=== PATIENT | female | born 1945 | race Caucasian/White ===

== ENCOUNTER 2018-04-25 19:48 | Inpatient (IN) | payer OTHER, MEDICARE ==
--- NOTE | 2018-04-25 20:06 | PDOC ---
History of Present Illness - General History Source: Patient, Family Exam Limitations: Dementia - History of Present Illness Initial Comments: 04/25/18 20:25 The patient is a 73 year old female with a past medical history of COPD, dementia, and alzheimers disease BIBEMS from [facility] who presents to the emergency department for evaluation of fever, and cough since this morning. As per daughter at bedside, patient has had a 2-3 week history of decline in daily activity including eating and using the bathroom. Daughter reports patient also has a 3 week history of worsening gait instability. Today, EMS reports patient had a fever with tmax of 101.4 and worsening productive cough. EMS reports nurse had given patient Tylenol at 5pm with mild alleviation to her symptoms. Patient history limited secondary to dementia. Allergies: seasonal Surgical History: B/L cataract, bladder mesh, hysterectomy PCP: Dr. Velasco <Andres Subramanian - Last Filed: 04/25/18 20:27> <Ila Mccormick - Last Filed: 04/26/18 02:25> - General Stated Complaint: SICK Time Seen by Provider: 04/25/18 20:03 Past History <Andres Subramanian - Last Filed: 04/25/18 20:27> - Past Medical History Anemia: No Asthma: Yes Cancer: No Cardiac Disorders: No CVA: No COPD: Yes CHF: No Dementia: Yes (FORGETFUL, MILD DEMENTIA) Diabetes: No GI Disorders: Yes (ACID REFLUX) Disorders: No HTN: No Hypercholesterolemia: No Liver Disease: No Psychiatric Problems: Yes (ANXIETY) Seizures: No Thyroid Disease: No - Surgical History Abdominal Surgery: No Appendectomy: No Cardiac Surgery: No Cholecystectomy: No Lung Surgery: No Neurologic Surgery: No Orthopedic Surgery: No - Immunization History Td Vaccination: Yes Immunization Up to Date: Yes - Suicide/Smoking/Psychosocial Hx Smoking Status: No Smoking History: Former smoker Have you smoked in the past 12 months: No Number of Cigarettes Smoked Daily: 0 If you are a former smoker, when did you quit?: OVER 40 YREAS AGO Hx Alcohol Use: No Drug/Substance Use Hx: No Substance Use Type: None Hx Substance Use Treatment: No <Ila Mccormick - Last Filed: 04/26/18 02:25> - Past Medical History Allergies/Adverse Reactions: Allergies Allergy/AdvReac Type Severity Reaction Status Date / Time No Known Drug Allergies Allergy Verified 04/26/18 00:47 seasonal Allergy Uncoded 04/25/18 20:32 Home Medications: Ambulatory Orders Alprazolam 0.25 mg PO BID tablet 08/25/12 Cholecalciferol (Vitamin D3) [Vitamin D3] 400 unit PO DAILY tablet 09/08/12 Magnesium Oxide [Magnesium] 500 mg PO 2 Caps daily capsule 09/08/12 Multivitamin [Daily Vitamin] 1 each PO DAILY tablet 09/08/12 Pyridoxine HCl [Vitamin B-6] 200 mg PO 2 Tabs Daily tablet 09/08/12 Alprazolam 0.25 mg PO BID 08/13/14 Pantoprazole Sodium [Protonix] 40 mg PO DAILY 08/13/14 Montelukast Na [Singulair -] 10 mg PO HS 09/25/14 Amoxicillin/Potassium Clav [Augmentin 875-125 Tablet] 1 each PO BID #10 tablet 05/31/15 Guaifenesin [Expectorant] 200 mg PO QID PRN #30 tablet 05/31/15 Respiratory Specific PMHX - Complaint Specific PMHX Angina: No Bronchitis: (possible) Pneumonia: No Pulmonary Embolus: No TB (Tuberculosis): No <Ila Mccormick - Last Filed: 04/26/18 02:25> Review of Systems - Review of Systems Able to Perform ROS?: No (unable to obtain dementia) Comments:: ROS unable to obtain secondary to dementia. <Andres Subramanian - Last Filed: 04/25/18 20:27> *Physical Exam - Physical Exam Comments: 04/25/18 20:26 wnwd 73 yo F, mildly diaphoretic head ncat neck supple oropharynx no exudates Heart RRR. No gallops, murmurs, or rubs. lungs clear to auscultation bilaterally, no wheezing or crackles abd soft,nontender ext no e/c/c, MAEx4 skin warm and dry,no rashes neuro Alert, poor historian <Andres Subramanian - Last Filed: 04/25/18 20:27> ED Treatment Course - LABORATORY CBC & Chemistry Diagram: 04/25/18 21:20 04/25/18 21:20 <Ila Mccormick - Last Filed: 04/26/18 02:25> Medical Decision Making - Medical Decision Making 04/25/18 20:08 73-year-old female brought in by ambulance from [address] [place] [address] for several weeks of decline in her activities of daily living, with difficulty feeding herself and ambulating. Over the last 24 hours she has had productive cough and fever and has difficulty walking Past medical history COPD, dementia Past surgical history hysterectomy, cataracts Pulse ox on room air is 92% Plan rectal temp, influenza swab, chest x-ray, CBC, total, comp, chemistries, CAT scan of the head 04/25/18 23:56 CAT scan of the head findings. Brain parenchyma is normal with no mass or hematoma. There is no midline shift. Grade white matter differentiation is normal. The ventricles are normal. There is no calvarial fracture. There is some mucosal thickening of the x-ray sinuses with surgical changes in the medial wall, suggesting previous sinus surgery. Impression sinusitis 04/26/18 01:19 UA shows urinary tract infection IMP UTI,fever,weakness ADMIT med/surg 04/26/18 01:43 <Ila Mccormick - Last Filed: 04/26/18 02:25> *DC/Admit/Observation/Transfer - Attestations Scribe Attestion: Documentation prepared by Andres Subramanian, acting as medical technicians for Ila Mccormick MD. <Andres Subramanian - Last Filed: 04/25/18 20:27> - Discharge Dispostion Decision to Admit order: Yes <Ila Mccormick - Last Filed: 04/26/18 02:25> Diagnosis at time of Disposition: UTI (urinary tract infection) Qualifiers: Urinary tract infection type: acute cystitis Hematuria presence: without hematuria Qualified Code(s): N30.00 - Acute cystitis without hematuria Dementia Qualifiers: Dementia type: unspecified type Dementia behavioral disturbance: without behavioral disturbance Qualified Code(s): F03.90 - Unspecified dementia without behavioral disturbance Fever Qualifiers: Fever type: due to other condition Qualified Code(s): R50.81 - Fever presenting with conditions classified elsewhere - Referrals Referrals: Steven Velasco [Primary Care Provider] - - Patient Instructions - Post Discharge Activity
[2018-04-25 21:39] LABS: BASO % 0.3 % (0-2.0); EOS % 1.1 % (0-4.5); HEMATOCRIT 39.9 % (32.4-45.2); HEMOGLOBIN 13.6 GM/dL (10.7-15.3); LYMPH % 22.8 % (8-40); MCH 28.1 pg (25.7-33.7); MCHC 34.1 g/dl (32.0-36.0); MEAN CELL VOLUME 82.5 fl (80-96); MEAN PLT VOLUME 8.3 fl (7.5-11.1); MONO % 11.3 % (3.8-10.2); NEUT % 64.5 % (42.8-82.8); PLATELET COUNT 429 K/MM3 (134-434); RBC 4.84 M/mm3 (3.60-5.2); RDW 14.2 % (11.6-15.6); WHITE BLOOD COUNT 10.3 K/mm3 (4.0-10.0)
[2018-04-25 21:51] LABS: VENOUS PC02 45.3 mmHg (38-52); VENOUS PH 7.39 (7.32-7.42)
[2018-04-25 22:06] LABS: ALBUMIN 3.4 g/dl (3.4-5.0); ALK PHOS 140 U/L (45-117); ANION GAP 7 MMOL/L (8-16); BILIRUBIN,TOTAL 0.3 mg/dL (0.2-1); BLOOD UREA NITROGEN 20 mg/dL (7-18); CALCIUM 9.7 mg/dL (8.5-10.1); CHLORIDE 104 mmol/L (98-107); CO2 27 mmol/L (21-32); CREATININE 0.4 mg/dL (0.55-1.3); GLUCOSE,RANDOM 99 mg/dL (74-106); POTASSIUM 4.3 mmol/L (3.5-5.1); SGOT/AST 29 U/L (15-37); SGPT/ALT 39 U/L (13-61); SODIUM 138 mmol/L (136-145); TOT PROT 7.2 g/dl (6.4-8.2)
[2018-04-25 22:09] LABS: INR 1.05 (0.83-1.09); PROTHROMBIN TIME (PATIENT) 12.4 SEC (9.7-13.0)
[2018-04-25 22:12] LABS: ACTIVATED PTT 30.3 SECONDS (25.2-36.5)
[2018-04-25 23:41] LABS: URINE APPEARANCE CLEAR; URINE BILIRUBIN NEGATIVE (<2.0 mg/dL); URINE COLOR YELLOW; URINE GLUCOSE (UA) NEGATIVE (NEGATIVE); URINE KETONE NEGATIVE (NEGATIVE); URINE LEUK ESTERASE 2+ (NEGATIVE); URINE NITRITE NEGATIVE (NEGATIVE); URINE PROTEIN NEGATIVE (NEGATIVE); URINE UROBILINOGEN NEGATIVE mg/dL (0.2-1.0)
[2018-04-25 23:48] LABS: EPI CELLS RARE /HPF (FEW); URINE MUCUS RARE
[2018-04-26] MEDS ORDERED: CEFTRIAXONE 1 GM in DEXTROSE 5%-WATER - 50 ML IVPB ONE (00:45)
[2018-04-26] MEDS ORDERED: CEFTRIAXONE 1 GM/50 ML BAG ONE (01:46)
--- NOTE | 2018-04-26 02:18 | PN ---
Teaching Attending Note Name of Resident: Walter Thapa ATTENDING PHYSICIAN STATEMENT I saw and evaluated the patient. I reviewed the resident's note and discussed the case with the resident. I agree with the resident's findings and plan as documented. SUBJECTIVE: Patient is a 73 year old woman with a past medical history of COPD, anxiety, dementia, and alzheimers disease who presents from [address] [place] [address] to the ER for evaluation of fever, and cough since this morning. As per daughter at bedside, patient has had a 2-3 week history of decline in daily activity including eating and using the bathroom. Daughter reports patient also has a 3 week history of worsening gait instability. EMS reports patient had a fever today with Tmax of 101.4 and worsening productive cough. EMS reports nurse had given patient Tylenol at 5pm with mild alleviation to her symptoms. Patient history limited secondary to dementia. OBJECTIVE: Alert Vital Signs Period Temp Pulse Resp BP Sys/Parmar Pulse Ox Last 24 Hr 99.8 F 87 18 129/85 93 HEENT: No Jaundice, eye redness or discharge, PERRLA, EOMI. Normocephalic, atraumatic. External ears are normal and hearing is grossly intact. No nasal discharge. Neck: Supple, nontender. No palpable adenopathy or thyromegaly. No JVD Chest: Good effort. Clear to auscultation and percussion. Heart: Regular. No S3, rub or murmur Abdomen: Not distended, soft, nontender and no HSM. No rebound or guarding. Normoactive bowel sounds. Ext: Peripheral pulses intact. No leg edema. Skin: Warm and dry. No petechiae, rash or ecchymosis. Neuro: Alert. Oriented to person. CN 2-12 grossly intact. Sensation grossly intact in all four extremities and DTR are symmetric. Home Medications Medication Instructions Recorded Alprazolam 0.25 mg PO BID tablet 08/25/12 Cholecalciferol (Vitamin D3) 400 unit PO DAILY tablet 09/08/12 [Vitamin D3] Magnesium Oxide [Magnesium] 500 mg PO 2 Caps daily capsule 09/08/12 Multivitamin [Daily Vitamin] 1 each PO DAILY tablet 09/08/12 Pyridoxine HCl [Vitamin B-6] 200 mg PO 2 Tabs Daily tablet 09/08/12 Alprazolam 0.25 mg PO BID 08/13/14 Pantoprazole Sodium [Protonix] 40 mg PO DAILY 08/13/14 Montelukast Na [Singulair -] 10 mg PO HS 09/25/14 Amoxicillin/Potassium Clav 1 each PO BID #10 tablet 05/31/15 [Augmentin 875-125 Tablet] Guaifenesin [Expectorant] 200 mg PO QID PRN #30 tablet 05/31/15 Abnormal Lab Results 04/25/18 04/25/18 04/25/18 21:20 21:20 21:20 WBC 10.3 H Monocytes % 11.3 H Mixed VBG HCO3 27.1 H Anion Gap 7 L BUN 20 H Creatinine 0.4 L Alkaline Phosphatase 140 H Ur Leukocyte Esterase 04/25/18 23:30 WBC Monocytes % Mixed VBG HCO3 Anion Gap BUN Creatinine Alkaline Phosphatase Ur Leukocyte Esterase 2+ H ASSESSMENT AND PLAN: 1. UTI - Global debility likely due to effects of UTI and possibly progression of dementia. Head CT did not any acute pathology. Flu swab was negative. CXR shows increased interstitial markings but no focal infiltrate. Will continue Rocephin IV 1 gm daily, gentle IV fluids and consult laboratory machinist and PT. 2. DVT prophylaxis - Lovenox 40 mg SQ q 24 hours. 3. Advance directives - Full code
--- NOTE | 2018-04-26 03:23 | HP ---
CHIEF COMPLAINT: Fever, generalized weakness PCP: Dr. Velasco HISTORY OF PRESENT ILLNESS: The patient is a 73 yo f w/ PMH COPD and alzheimer's dementia who presented from [address] [place] [address] for a 1 day history of fever and a 3 week history of progressive generalized weakness. The patient was not able to provide a history. The following history was obtained from the patient's daughter at bedside. Over the past 2-3 weeks, the patient has been having a progressive decline in her ability to maintain her ADLs, specifically her ability to ambulate properly. Starting this past tuesday, this gradual decline became more steep, resulting in her being unable to carry out any of her ADLs and her being bed bound, where she was able to ambulate independently a few days ago. She also displayed a decrease in appetite. In addition to this decline, she was reported to have a fever to 101.4 at the assisted living which prompted her visit to the ED for evaluation. ER course was notable for: (1) 1g ceftriaxone IV (2) UA showing 2+ leuk and 85 WBC (3) leukocytosis to 10.3, BUN 20 Recent Travel: none PAST MEDICAL HISTORY: see HPI PAST SURGICAL HISTORY: Bladder mesh placement Hysterectomy b/l cataract sx Social History: Smoking: former smoker (20 pack years) quit 40 years ago Alcohol: denies Drugs: denies Family History: Father with Alzheimer's dementia Allergies No Known Drug Allergies Allergy (Verified 04/26/18 00:47) seasonal Allergy (Uncoded 04/25/18 20:32) HOME MEDICATIONS: Home Medications Medication Instructions Recorded Alprazolam 0.25 mg PO BID tablet 08/25/12 Cholecalciferol (Vitamin D3) 400 unit PO DAILY tablet 09/08/12 [Vitamin D3] Magnesium Oxide [Magnesium] 500 mg PO 2 Caps daily capsule 09/08/12 Multivitamin [Daily Vitamin] 1 each PO DAILY tablet 09/08/12 Pyridoxine HCl [Vitamin B-6] 200 mg PO 2 Tabs Daily tablet 09/08/12 Alprazolam 0.25 mg PO BID 08/13/14 Pantoprazole Sodium [Protonix] 40 mg PO DAILY 08/13/14 Montelukast Na [Singulair -] 10 mg PO HS 09/25/14 Amoxicillin/Potassium Clav 1 each PO BID #10 tablet 05/31/15 [Augmentin 875-125 Tablet] Guaifenesin [Expectorant] 200 mg PO QID PRN #30 tablet 05/31/15 REVIEW OF SYSTEMS Unable to obtain PHYSICAL EXAMINATION Vital Signs - 24 hr 04/25/18 20:26 Temperature 99.8 F H Pulse Rate 87 Respiratory 18 Rate Blood Pressure 129/85 O2 Sat by Pulse 93 L Oximetry (%) GENERAL: Awake, alert, oriented to self only, in no acute distress. At baseline mental status as per daughter HEAD: Normal with no signs of trauma. EYES: Pupils equal, round and reactive to light, extraocular movements intact, sclera anicteric, conjunctiva clear. No lid lag. LUNGS: Breath sounds equal, clear to auscultation bilaterally. No wheezes, and no crackles. No accessory muscle use. HEART: Regular rate and rhythm, normal S1 and S2 without murmur, rub or gallop. ABDOMEN: Soft, nontender, not distended, normoactive bowel sounds, no guarding, no rebound, no masses. No hepatomegaly or splenomegaly. LOWER EXTREMITIES: 2+ pulses, warm, well-perfused. No calf tenderness. No peripheral edema. NEUROLOGICAL: Cranial nerves II-X intact. Normal speech. Strength 5/5 in all 4 limbs SKIN: Warm, dry, normal turgor, no rashes or lesions noted, normal capillary refill. Laboratory Results - last 24 hr 04/25/18 04/25/18 04/25/18 20:30 21:20 21:20 WBC 10.3 H RBC 4.84 Hgb 13.6 Hct 39.9 MCV 82.5 MCH 28.1 MCHC 34.1 RDW 14.2 Plt Count 429 MPV 8.3 Absolute Neuts (auto) 6.6 Neutrophils % 64.5 Lymphocytes % 22.8 Monocytes % 11.3 H Eosinophils % 1.1 Basophils % 0.3 Nucleated RBC % 0 PT with INR 12.40 INR 1.05 PTT (Actin FS) 30.3 VBG pH POC VBG pCO2 POC VBG pO2 Mixed VBG HCO3 Sodium Potassium Chloride Carbon Dioxide Anion Gap BUN Creatinine Creat Clearance w eGFR Random Glucose Lactic Acid Calcium Total Bilirubin AST ALT Alkaline Phosphatase Troponin I Total Protein Albumin Urine Color Urine Appearance Urine pH Ur Specific [place] Urine Protein Urine Glucose (UA) Urine Ketones Urine Blood Urine Nitrite Urine Bilirubin Urine Urobilinogen Ur Leukocyte Esterase Urine WBC (Auto) Urine RBC (Auto) Ur Epithelial Cells Urine Mucus Influenza A (Rapid) Negative Influenza B (Rapid) Negative 04/25/18 04/25/18 04/25/18 21:20 21:20 21:20 WBC RBC Hgb Hct MCV MCH MCHC RDW Plt Count MPV Absolute Neuts (auto) Neutrophils % Lymphocytes % Monocytes % Eosinophils % Basophils % Nucleated RBC % PT with INR INR PTT (Actin FS) VBG pH 7.39 POC VBG pCO2 45.3 POC VBG pO2 42.0 Mixed VBG HCO3 27.1 H Sodium 138 Potassium 4.3 Chloride 104 Carbon Dioxide 27 Anion Gap 7 L BUN 20 H Creatinine 0.4 L Creat Clearance w eGFR > 60 Random Glucose 99 Lactic Acid 0.9 Calcium 9.7 Total Bilirubin 0.3 AST 29 ALT 39 Alkaline Phosphatase 140 H Troponin I Total Protein 7.2 Albumin 3.4 Urine Color Urine Appearance Urine pH Ur Specific [place] Urine Protein Urine Glucose (UA) Urine Ketones Urine Blood Urine Nitrite Urine Bilirubin Urine Urobilinogen Ur Leukocyte Esterase Urine WBC (Auto) Urine RBC (Auto) Ur Epithelial Cells Urine Mucus Influenza A (Rapid) Influenza B (Rapid) 04/25/18 04/25/18 04/26/18 21:20 23:30 01:30 WBC RBC Hgb Hct MCV MCH MCHC RDW Plt Count MPV Absolute Neuts (auto) Neutrophils % Lymphocytes % Monocytes % Eosinophils % Basophils % Nucleated RBC % PT with INR INR PTT (Actin FS) VBG pH POC VBG pCO2 POC VBG pO2 Mixed VBG HCO3 Sodium Potassium Chloride Carbon Dioxide Anion Gap BUN Creatinine Creat Clearance w eGFR Random Glucose Lactic Acid 0.5 Calcium Total Bilirubin AST ALT Alkaline Phosphatase Troponin I < 0.02 Total Protein Albumin Urine Color Yellow Urine Appearance Clear Urine pH 6.0 Ur Specific [place] 1.017 Urine Protein Negative Urine Glucose (UA) Negative Urine Ketones Negative Urine Blood Negative Urine Nitrite Negative Urine Bilirubin Negative Urine Urobilinogen Negative Ur Leukocyte Esterase 2+ H Urine WBC (Auto) 85 Urine RBC (Auto) 1 Ur Epithelial Cells Rare Urine Mucus Rare Influenza A (Rapid) Influenza B (Rapid) ASSESSMENT/PLAN: The patient is a 73 yo f w/ PMH COPD and dementia who comes into the ED c/o generalized weakness and fever found to have a UTI #Generalized weakness, decrease in ability to perform ADLs, fever likely 2/2 UTI -natural progression of dementia cannot be ruled out -UA positive for UTI -small leukocytes to 10.3 -s/p 1g ceftriaxone in ED -will c/w Ceftriaxone 1g IV daily -NS @ 42 x 1 bag -PT eval in the AM #COPD -resume home advair -resume home singulair #dementia -c/w home mirtazipine 7.5 HS -c/w alprazolam .25 BID #FEN -NS @ 42 -lytes WNL, monitor -sodium controlled diet #Prophy -Lovenox 40 mg SQ daily #Dispo -admit med surg -Patient cannot go back to assisted [facility] section [facility]. The daughter has discussed the possibility of moving the patient over to another section of the facility where she will be able to get more 1:1 care. [facility] is aware of this plan. The daughter would prefer her to stay at [facility] if she is able to. Visit type - Emergency Visit Emergency Visit: Yes ED Registration Date: 04/26/18 Care time: The patient presented to the Emergency Department on the above date and was hospitalized for further evaluation of their emergent condition. - New Patient This patient is new to me today: Yes Date on this admission: 04/26/18 - Critical Care Critical Care patient: No
[2018-04-26] MEDS ORDERED: SODIUM CHLORIDE 1,000 ML IV SCH (03:30)
[2018-04-26 05:02] VITALS: BMI 22.6
[2018-04-26] MEDS ORDERED: GUAIFENESIN 200 MG PO PRN (07:58)
[2018-04-26] MEDS ORDERED: FLUTICASONE PROP 0.05% 16 GM NASAL SPRAY NS SCH (08:00)
[2018-04-26] MEDS ORDERED: PATIENT'S OWN MEDICATION (NON-FORMULARY) (Magnesium Oxide [Magnesium] 500 MG) PO SCH (08:00)
[2018-04-26] MEDS ORDERED: PYRIDOXINE HCL 200 MG PO SCH (08:00)
[2018-04-26] MEDS ORDERED: PT OWN MED DRAWER 7, Y5N ONE (09:10)
[2018-04-26] MEDS ORDERED: ALPRAZolam 0.25 MG TABLET PO SCH (10:00)
[2018-04-26] MEDS: ENOXAPARIN NA (PORCINE) 40 MG/0.4 ML DISP.SYRIN SQ SCH (10:29)
[2018-04-26] MEDS: ALPRAZolam 0.25 MG TABLET PO SCH ×2 (10:30→22:05)
[2018-04-26] MEDS: MULTIVITAMINS (DAILY MVI) TABLET (FP) PO SCH (10:30)
[2018-04-26] MEDS: PANTOPRAZOLE 40 MG TABLET (FP) PO SCH (10:30)
[2018-04-26] MEDS: FLUTICASONE/SALMETEROL 100 MCG/50 MCG DISKUS IH SCH ×2 (10:30→21:56)
[2018-04-26] MEDS: CHOLECALCIFEROL (VITAMIN D3) 400 UNIT TABLET (FP) PO SCH (10:30)
[2018-04-26 10:34] LABS: INR 1.08 (0.83-1.09); PROTHROMBIN TIME (PATIENT) 12.7 SEC (9.7-13.0)
[2018-04-26 10:37] LABS: ACTIVATED PTT 28.9 SECONDS (25.2-36.5)
[2018-04-26 11:03] LABS: ANION GAP 7 MMOL/L (8-16); BLOOD UREA NITROGEN 13 mg/dL (7-18); CALCIUM 8.2 mg/dL (8.5-10.1); CHLORIDE 105 mmol/L (98-107); CO2 26 mmol/L (21-32); CREATININE 0.3 mg/dL (0.55-1.3); GLUCOSE,RANDOM 101 mg/dL (74-106); MAGNESIUM 2.2 mg/dL (1.8-2.4); PHOSPHOROUS 2.1 mg/dL (2.5-4.9); SODIUM 138 mmol/L (136-145)
[2018-04-26 12:17] LABS: HEMATOCRIT 36.3 % (32.4-45.2); HEMOGLOBIN 12.6 GM/dL (10.7-15.3); MCH 28.8 pg (25.7-33.7); MCHC 34.7 g/dl (32.0-36.0); MEAN CELL VOLUME 83.1 fl (80-96); MEAN PLT VOLUME 8.8 fl (7.5-11.1); PLATELET COUNT 380 K/MM3 (134-434); RBC 4.37 M/mm3 (3.60-5.2); RDW 14.2 % (11.6-15.6); WHITE BLOOD COUNT 6.6 K/mm3 (4.0-10.0)
[2018-04-26] MEDS ORDERED: NAPH,MB-DB/K PH,MBDB POWDER PACKET PO ONE (14:55)
--- NOTE | 2018-04-26 14:57 | EKG ---
Test Reason : Blood Pressure : / mmHG Vent. Rate : 075 BPM Atrial Rate : 075 BPM P-R Int : 156 ms QRS Dur : 084 ms QT Int : 378 ms P-R-T Axes : 044 -09 040 degrees QTc Int : 422 ms NORMAL SINUS RHYTHM MINIMAL VOLTAGE CRITERIA FOR LVH, MAY BE NORMAL VARIANT BORDERLINE ECG WHEN COMPARED WITH ECG OF 14-AUG-1998 09:42, NO SIGNIFICANT CHANGE WAS FOUND Confirmed by JOHNATHAN FISHER, SONNY ([id number]) on 04/26/2018 2:56:41 PM Referred By: Confirmed By:SONNY MANN MD
--- NOTE | 2018-04-26 15:10 | PN ---
Physical Exam: SUBJECTIVE: Patient seen and examined this AM. She states she is feeling well with minimal complaints. Cannot fully explain why she is in the hospital. OBJECTIVE: Vital Signs Period Temp Pulse Resp BP Sys/Parmar Pulse Ox Last 24 Hr 98.5 F-99.8 F 75-88 18-20 113-134/59-85 93-98 GENERAL: Alert, no acute distress HEAD: Normocephalic, atraumatic. EYES: PERRL, no scleral icterus EARS, NOSE, THROAT: oropharynx clear without exudates. Moist mucous membranes. NECK: supple without lymphadenopathy LUNGS: CTA b/l, no crackles or wheezes HEART: Regular rate and rhythm, normal S1 and S2 without murmur ABDOMEN: Soft, minimally tender to palpation in suprapubic region, normoactive bowel sounds EXTREMITIES: 2+ pulses, warm, well-perfused. No peripheral edema. NEUROLOGICAL: Cranial nerves II-XII grossly intact. Normal speech. 5/5 strength throughout Laboratory Results - last 24 hr 04/25/18 04/25/18 04/25/18 20:30 21:20 21:20 WBC 10.3 H RBC 4.84 Hgb 13.6 Hct 39.9 MCV 82.5 MCH 28.1 MCHC 34.1 RDW 14.2 Plt Count 429 MPV 8.3 Absolute Neuts (auto) 6.6 Neutrophils % 64.5 Lymphocytes % 22.8 Monocytes % 11.3 H Eosinophils % 1.1 Basophils % 0.3 Nucleated RBC % 0 PT with INR 12.40 INR 1.05 PTT (Actin FS) 30.3 VBG pH POC VBG pCO2 POC VBG pO2 Mixed VBG HCO3 Sodium Potassium Chloride Carbon Dioxide Anion Gap BUN Creatinine Creat Clearance w eGFR Random Glucose Lactic Acid Calcium Phosphorus Magnesium Total Bilirubin AST ALT Alkaline Phosphatase Troponin I Total Protein Albumin Urine Color Urine Appearance Urine pH Ur Specific [place] Urine Protein Urine Glucose (UA) Urine Ketones Urine Blood Urine Nitrite Urine Bilirubin Urine Urobilinogen Ur Leukocyte Esterase Urine WBC (Auto) Urine RBC (Auto) Ur Epithelial Cells Urine Mucus Influenza A (Rapid) Negative Influenza B (Rapid) Negative 04/25/18 04/25/18 04/25/18 21:20 21:20 21:20 WBC RBC Hgb Hct MCV MCH MCHC RDW Plt Count MPV Absolute Neuts (auto) Neutrophils % Lymphocytes % Monocytes % Eosinophils % Basophils % Nucleated RBC % PT with INR INR PTT (Actin FS) VBG pH 7.39 POC VBG pCO2 45.3 POC VBG pO2 42.0 Mixed VBG HCO3 27.1 H Sodium 138 Potassium 4.3 Chloride 104 Carbon Dioxide 27 Anion Gap 7 L BUN 20 H Creatinine 0.4 L Creat Clearance w eGFR > 60 Random Glucose 99 Lactic Acid 0.9 Calcium 9.7 Phosphorus Magnesium Total Bilirubin 0.3 AST 29 ALT 39 Alkaline Phosphatase 140 H Troponin I Total Protein 7.2 Albumin 3.4 Urine Color Urine Appearance Urine pH Ur Specific [place] Urine Protein Urine Glucose (UA) Urine Ketones Urine Blood Urine Nitrite Urine Bilirubin Urine Urobilinogen Ur Leukocyte Esterase Urine WBC (Auto) Urine RBC (Auto) Ur Epithelial Cells Urine Mucus Influenza A (Rapid) Influenza B (Rapid) 04/25/18 04/25/18 04/26/18 21:20 23:30 01:30 WBC RBC Hgb Hct MCV MCH MCHC RDW Plt Count MPV Absolute Neuts (auto) Neutrophils % Lymphocytes % Monocytes % Eosinophils % Basophils % Nucleated RBC % PT with INR INR PTT (Actin FS) VBG pH POC VBG pCO2 POC VBG pO2 Mixed VBG HCO3 Sodium Potassium Chloride Carbon Dioxide Anion Gap BUN Creatinine Creat Clearance w eGFR Random Glucose Lactic Acid 0.5 Calcium Phosphorus Magnesium Total Bilirubin AST ALT Alkaline Phosphatase Troponin I < 0.02 Total Protein Albumin Urine Color Yellow Urine Appearance Clear Urine pH 6.0 Ur Specific [place] 1.017 Urine Protein Negative Urine Glucose (UA) Negative Urine Ketones Negative Urine Blood Negative Urine Nitrite Negative Urine Bilirubin Negative Urine Urobilinogen Negative Ur Leukocyte Esterase 2+ H Urine WBC (Auto) 85 Urine RBC (Auto) 1 Ur Epithelial Cells Rare Urine Mucus Rare Influenza A (Rapid) Influenza B (Rapid) 04/26/18 04/26/18 04/26/18 09:50 09:50 09:50 WBC 6.6 RBC 4.37 Hgb 12.6 Hct 36.3 MCV 83.1 MCH 28.8 MCHC 34.7 RDW 14.2 Plt Count 380 MPV 8.8 Absolute Neuts (auto) Neutrophils % Lymphocytes % Monocytes % Eosinophils % Basophils % Nucleated RBC % PT with INR 12.70 INR 1.08 PTT (Actin FS) 28.9 VBG pH POC VBG pCO2 POC VBG pO2 Mixed VBG HCO3 Sodium 138 Potassium 4.0 Chloride 105 Carbon Dioxide 26 Anion Gap 7 L BUN 13 Creatinine 0.3 L Creat Clearance w eGFR > 60 Random Glucose 101 Lactic Acid Calcium 8.2 L Phosphorus 2.1 L Magnesium 2.2 Total Bilirubin AST ALT Alkaline Phosphatase Troponin I Total Protein Albumin Urine Color Urine Appearance Urine pH Ur Specific [place] Urine Protein Urine Glucose (UA) Urine Ketones Urine Blood Urine Nitrite Urine Bilirubin Urine Urobilinogen Ur Leukocyte Esterase Urine WBC (Auto) Urine RBC (Auto) Ur Epithelial Cells Urine Mucus Influenza A (Rapid) Influenza B (Rapid) Active Medications Generic Name Dose Route Start Last Admin Trade Name Freq PRN Reason Stop Dose Admin Alprazolam 0.25 mg 04/26/18 10:00 04/26/18 10:30 Xanax - PO 0.25 mg BID RANDA Administration Cholecalciferol 400 unit 04/26/18 10:00 04/26/18 10:30 Vitamin D3 - PO 400 unit DAILY RANDA Administration Enoxaparin Sodium 40 mg 04/26/18 10:00 04/26/18 10:29 Lovenox - SQ 40 mg DAILY RANDA Administration Fluticasone Propionate 2 spray 04/26/18 15:15 Flonase - NS DAILY RANDA Sodium Chloride 1,000 mls @ 42 mls/hr 04/26/18 03:30 04/26/18 05:28 Normal Saline - IV 04/27/18 03:19 42 mls/hr ASDIR RANDA Administration Ceftriaxone Sodium 1 gm/ 50 mls @ 100 mls/hr 04/26/18 22:00 Dextrose IVPB HS RANDA Protocol Mirtazapine 7.5 mg 04/26/18 22:00 Remeron - PO HS RANDA Montelukast Sodium 10 mg 04/26/18 22:00 Singulair - PO HS RANDA Multivitamins/Minerals/Vitamin C 1 tab 04/26/18 10:00 04/26/18 10:30 Tab-A-Vit - PO 1 tab DAILY RANDA Administration Pantoprazole Sodium 40 mg 04/26/18 10:00 04/26/18 10:30 Protonix - PO 40 mg DAILY RANDA Administration Potassium Phos/Sodium Phos 1 packet 04/26/18 14:55 Phos-Nak Packet - PO 04/26/18 14:56 ONCE ONE Pyridoxine HCl 100 mg 04/27/18 10:00 Vitamin B6 - PO DAILY RANDA Fluticasone/Salmeterol 1 puff 04/26/18 10:00 04/26/18 10:30 Advair 100mcg/50mcg - IH 1 puff BID RANDA Administration ASSESSMENT/PLAN: 73 yo f w/ PMH COPD and alzheimer's dementia who presented from [address] [place] [address] for a 1 day history of fever and a 3 week history of progressive generalized weakness Acute Metabolic Encephalopathy secondary to UTI -UA noted with 2+ LE and 85 WBCs -Rocephin 1 gm IV Daily -Afebrile -IV fluids -PT eval COPD -Singulair 10 mg PO HS -Advair 100/50 -Flonase Alzheimer's Dementia -Remeron 7.5 mg PO HS -Xanax 0.25 mg PO BID PRN for anxiety/agitation DVT Prophylaxis -Lovenox 40 mg SQ IV FEN -Fluids: NS @ 42 cc/hr -Electrolytes: No electrolyte abnormalities, BMP in AM -Nutrition: Na controlled diet Disposition Med/Surg Visit type - Emergency Visit Emergency Visit: Yes ED Registration Date: 04/26/18 Care time: The patient presented to the Emergency Department on the above date and was hospitalized for further evaluation of their emergent condition. - New Patient This patient is new to me today: Yes Date on this admission: 04/26/18 - Critical Care Critical Care patient: No
--- NOTE | 2018-04-26 17:17 | PN ---
Teaching Attending Note Name of Resident: Issa Castaneda ATTENDING PHYSICIAN STATEMENT I saw and evaluated the patient. I reviewed the resident's note and discussed the case with the resident. I agree with the resident's findings and plan as documented. SUBJECTIVE: Confused, no complaints. Unable to provide history. OBJECTIVE: Afebrile, Hemodynamically Stable. Last Vital Signs Temp Pulse Resp BP Pulse Ox 99.0 F 88 20 113/59 L 95 04/26/18 14:21 04/26/18 14:21 04/26/18 14:21 04/26/18 14:21 04/26/18 11:26 HEENT - Atraumatic, Normocephalic Heart - S1, S2, soft SM Lungs - clear to auscultation, no crackles/wheeze Abdomen - Soft, non-tender. Bowel Sounds normal. Extremities - no edema. No calf tenderness. Neuro - AAO x 1. Tone/Power normal all 4 extremities. CN intact. KENIA. Laboratory Results - last 24 hr 04/25/18 04/25/18 04/25/18 20:30 21:20 21:20 WBC 10.3 H RBC 4.84 Hgb 13.6 Hct 39.9 MCV 82.5 MCH 28.1 MCHC 34.1 RDW 14.2 Plt Count 429 MPV 8.3 Absolute Neuts (auto) 6.6 Neutrophils % 64.5 Lymphocytes % 22.8 Monocytes % 11.3 H Eosinophils % 1.1 Basophils % 0.3 Nucleated RBC % 0 PT with INR 12.40 INR 1.05 PTT (Actin FS) 30.3 VBG pH POC VBG pCO2 POC VBG pO2 Mixed VBG HCO3 Sodium Potassium Chloride Carbon Dioxide Anion Gap BUN Creatinine Creat Clearance w eGFR Random Glucose Lactic Acid Calcium Phosphorus Magnesium Total Bilirubin AST ALT Alkaline Phosphatase Troponin I Total Protein Albumin Urine Color Urine Appearance Urine pH Ur Specific [place] Urine Protein Urine Glucose (UA) Urine Ketones Urine Blood Urine Nitrite Urine Bilirubin Urine Urobilinogen Ur Leukocyte Esterase Urine WBC (Auto) Urine RBC (Auto) Ur Epithelial Cells Urine Mucus Influenza A (Rapid) Negative Influenza B (Rapid) Negative 04/25/18 04/25/18 04/25/18 21:20 21:20 21:20 WBC RBC Hgb Hct MCV MCH MCHC RDW Plt Count MPV Absolute Neuts (auto) Neutrophils % Lymphocytes % Monocytes % Eosinophils % Basophils % Nucleated RBC % PT with INR INR PTT (Actin FS) VBG pH 7.39 POC VBG pCO2 45.3 POC VBG pO2 42.0 Mixed VBG HCO3 27.1 H Sodium 138 Potassium 4.3 Chloride 104 Carbon Dioxide 27 Anion Gap 7 L BUN 20 H Creatinine 0.4 L Creat Clearance w eGFR > 60 Random Glucose 99 Lactic Acid 0.9 Calcium 9.7 Phosphorus Magnesium Total Bilirubin 0.3 AST 29 ALT 39 Alkaline Phosphatase 140 H Troponin I Total Protein 7.2 Albumin 3.4 Urine Color Urine Appearance Urine pH Ur Specific [place] Urine Protein Urine Glucose (UA) Urine Ketones Urine Blood Urine Nitrite Urine Bilirubin Urine Urobilinogen Ur Leukocyte Esterase Urine WBC (Auto) Urine RBC (Auto) Ur Epithelial Cells Urine Mucus Influenza A (Rapid) Influenza B (Rapid) 04/25/18 04/25/18 04/26/18 21:20 23:30 01:30 WBC RBC Hgb Hct MCV MCH MCHC RDW Plt Count MPV Absolute Neuts (auto) Neutrophils % Lymphocytes % Monocytes % Eosinophils % Basophils % Nucleated RBC % PT with INR INR PTT (Actin FS) VBG pH POC VBG pCO2 POC VBG pO2 Mixed VBG HCO3 Sodium Potassium Chloride Carbon Dioxide Anion Gap BUN Creatinine Creat Clearance w eGFR Random Glucose Lactic Acid 0.5 Calcium Phosphorus Magnesium Total Bilirubin AST ALT Alkaline Phosphatase Troponin I < 0.02 Total Protein Albumin Urine Color Yellow Urine Appearance Clear Urine pH 6.0 Ur Specific [place] 1.017 Urine Protein Negative Urine Glucose (UA) Negative Urine Ketones Negative Urine Blood Negative Urine Nitrite Negative Urine Bilirubin Negative Urine Urobilinogen Negative Ur Leukocyte Esterase 2+ H Urine WBC (Auto) 85 Urine RBC (Auto) 1 Ur Epithelial Cells Rare Urine Mucus Rare Influenza A (Rapid) Influenza B (Rapid) 04/26/18 04/26/18 04/26/18 09:50 09:50 09:50 WBC 6.6 RBC 4.37 Hgb 12.6 Hct 36.3 MCV 83.1 MCH 28.8 MCHC 34.7 RDW 14.2 Plt Count 380 MPV 8.8 Absolute Neuts (auto) Neutrophils % Lymphocytes % Monocytes % Eosinophils % Basophils % Nucleated RBC % PT with INR 12.70 INR 1.08 PTT (Actin FS) 28.9 VBG pH POC VBG pCO2 POC VBG pO2 Mixed VBG HCO3 Sodium 138 Potassium 4.0 Chloride 105 Carbon Dioxide 26 Anion Gap 7 L BUN 13 Creatinine 0.3 L Creat Clearance w eGFR > 60 Random Glucose 101 Lactic Acid Calcium 8.2 L Phosphorus 2.1 L Magnesium 2.2 Total Bilirubin AST ALT Alkaline Phosphatase Troponin I Total Protein Albumin Urine Color Urine Appearance Urine pH Ur Specific [place] Urine Protein Urine Glucose (UA) Urine Ketones Urine Blood Urine Nitrite Urine Bilirubin Urine Urobilinogen Ur Leukocyte Esterase Urine WBC (Auto) Urine RBC (Auto) Ur Epithelial Cells Urine Mucus Influenza A (Rapid) Influenza B (Rapid) Current Medications Generic Name Dose Route Start Last Admin Trade Name Freq PRN Reason Stop Dose Admin Alprazolam 0.25 mg 04/26/18 10:00 04/26/18 10:30 Xanax - PO 0.25 mg BID RANDA Administration Cholecalciferol 400 unit 04/26/18 10:00 04/26/18 10:30 Vitamin D3 - PO 400 unit DAILY RANDA Administration Enoxaparin Sodium 40 mg 04/26/18 10:00 04/26/18 10:29 Lovenox - SQ 40 mg DAILY RANDA Administration Fluticasone Propionate 2 spray 04/26/18 16:00 Flonase - NS DAILY RANDA Sodium Chloride 1,000 mls @ 42 mls/hr 04/26/18 03:30 04/26/18 05:28 Normal Saline - IV 04/27/18 03:19 42 mls/hr ASDIR RANDA Administration Ceftriaxone Sodium 1 gm/ 50 mls @ 100 mls/hr 04/26/18 22:00 Dextrose IVPB HS RANDA Protocol Mirtazapine 7.5 mg 04/26/18 22:00 Remeron - PO HS RANDA Montelukast Sodium 10 mg 04/26/18 22:00 Singulair - PO HS RANDA Multivitamins/Minerals/Vitamin C 1 tab 04/26/18 10:00 04/26/18 10:30 Tab-A-Vit - PO 1 tab DAILY RANDA Administration Pantoprazole Sodium 40 mg 04/26/18 10:00 04/26/18 10:30 Protonix - PO 40 mg DAILY RANDA Administration Pyridoxine HCl 100 mg 04/27/18 10:00 Vitamin B6 - PO DAILY RANDA Fluticasone/Salmeterol 1 puff 04/26/18 10:00 04/26/18 10:30 Advair 100mcg/50mcg - IH 1 puff BID RANDA Administration Home Medications Medication Instructions Recorded Alprazolam 0.25 mg PO BID tablet 08/25/12 Cholecalciferol (Vitamin D3) 400 unit PO DAILY tablet 09/08/12 [Vitamin D3] Magnesium Oxide [Magnesium] 500 mg PO 2 Caps daily capsule 09/08/12 Multivitamin [Daily Vitamin] 1 each PO DAILY tablet 09/08/12 Pyridoxine HCl [Vitamin B-6] 200 mg PO 2 Tabs Daily tablet 09/08/12 Alprazolam 0.25 mg PO BID 08/13/14 Pantoprazole Sodium [Protonix] 40 mg PO DAILY 08/13/14 Montelukast Na [Singulair -] 10 mg PO HS 09/25/14 Guaifenesin [Expectorant] 200 mg PO QID PRN #30 tablet 05/31/15 ASSESSMENT AND PLAN: 73 year old female with COPD, Anxiety, Dementia, GERD, presented from [address] [place] [address] for evaluation of fever, and 2-3 week history of cough , and worsening gait instability. CXR - increased interstitial markings but no focal infiltrate. Flu swab. 1. Acute Metabolic Encephalopathy sec to likely UTI UA LE 2+, UCx pending. Continue Rocephin. CT Head - L basal ganglia lacunar infarct of indeterminate age. MRI Brain pending. 2. COPD - Stable. Continue Advair. 3. Dementia - Continue Alprazolam 4. GERD - Continue PPI 5. Hypophosphatemia - will replete DVT prophylaxis - Lovenox 40 mg SQ
[2018-04-26] MEDS: FLUTICASONE PROP 0.05% 16 GM NASAL SPRAY NS SCH (18:22)
[2018-04-26] MEDS ORDERED: cefTRIAXone SODIUM 1 GM VIAL ONE (20:22)
[2018-04-26] MEDS ORDERED: DEXTROSE 5%-WATER - 50 ML IVPB ONE (20:22)
[2018-04-26] MEDS ORDERED: CEFTRIAXONE 1 GM in DEXTROSE 5%-WATER - 50 ML IVPB SCH (22:00)
[2018-04-26] MEDS: MIRTAZAPINE 15 MG TABLET (FP) PO SCH (22:05)
[2018-04-26] MEDS: MONTELUKAST NA 10 MG TABLET PO SCH (22:05)
[2018-04-27 07:26] LABS: HEMATOCRIT 36.2 % (32.4-45.2); HEMOGLOBIN 12.3 GM/dL (10.7-15.3); MEAN CELL VOLUME 82.4 fl (80-96); MEAN PLT VOLUME 8.5 fl (7.5-11.1); PLATELET COUNT 372 K/MM3 (134-434); RBC 4.39 M/mm3 (3.60-5.2); RDW 14.1 % (11.6-15.6); WHITE BLOOD COUNT 7.6 K/mm3 (4.0-10.0)
[2018-04-27 07:48] LABS: ANION GAP 6 MMOL/L (8-16); BLOOD UREA NITROGEN 10 mg/dL (7-18); CALCIUM 8.2 mg/dL (8.5-10.1); CHLORIDE 105 mmol/L (98-107); CO2 28 mmol/L (21-32); CREATININE 0.4 mg/dL (0.55-1.3); GLUCOSE,RANDOM 81 mg/dL (74-106); MAGNESIUM 2.2 mg/dL (1.8-2.4); PHOSPHOROUS 3.1 mg/dL (2.5-4.9); POTASSIUM 4.2 mmol/L (3.5-5.1); SODIUM 139 mmol/L (136-145)
[2018-04-27] MEDS ORDERED: PT OWN MED DRAWER 7, Y5N ONE (09:21)
[2018-04-27] MEDS: MULTIVITAMINS (DAILY MVI) TABLET (FP) PO SCH (09:25)
[2018-04-27] MEDS: PANTOPRAZOLE 40 MG TABLET (FP) PO SCH (09:25)
[2018-04-27] MEDS: CEPHALEXIN MONOHYDRATE 500 MG CAPSULE (UD) PO SCH ×2 (09:26→22:12)
[2018-04-27] MEDS: ENOXAPARIN NA (PORCINE) 40 MG/0.4 ML DISP.SYRIN SQ SCH (09:26)
[2018-04-27] MEDS: ALPRAZolam 0.25 MG TABLET PO SCH ×2 (09:27→22:13)
[2018-04-27] MEDS: PYRIDOXINE HCL (B-6) 50 MG TABLET (FP) PO SCH (09:27)
[2018-04-27] MEDS: CHOLECALCIFEROL (VITAMIN D3) 400 UNIT TABLET (FP) PO SCH (09:27)
[2018-04-27] MEDS: FLUTICASONE PROP 0.05% 16 GM NASAL SPRAY NS SCH (09:28)
[2018-04-27] MEDS: FLUTICASONE/SALMETEROL 100 MCG/50 MCG DISKUS IH SCH ×2 (09:29→22:15)
--- NOTE | 2018-04-27 11:07 | PN ---
Teaching Attending Note Name of Resident: Issa Castaneda ATTENDING PHYSICIAN STATEMENT I saw and evaluated the patient. I reviewed the resident's note and discussed the case with the resident. I agree with the resident's findings and plan as documented. SUBJECTIVE: Feels well - no complaints, unable to provide coherent history. OBJECTIVE: Afebrile, Hemodynamically Stable. Last Vital Signs Temp Pulse Resp BP Pulse Ox 98.9 F 91 H 20 143/73 95 04/27/18 06:35 04/27/18 06:35 04/27/18 06:35 04/27/18 06:35 04/27/18 09:00 HEENT - Atraumatic, Normocephalic Heart - S1, S2, soft SM Lungs - clear to auscultation, no crackles/wheeze Abdomen - Soft, non-tender. Bowel Sounds normal. Extremities - No calf tenderness. Neuro - AAO x 1. Tone/Power normal all 4 extremities. CN intact. KENIA. Laboratory Results - last 24 hr 04/26/18 04/27/18 04/27/18 09:50 06:30 06:30 WBC 6.6 7.6 RBC 4.37 4.39 Hgb 12.6 12.3 Hct 36.3 36.2 MCV 83.1 82.4 MCH 28.8 28.0 MCHC 34.7 34.0 RDW 14.2 14.1 Plt Count 380 372 MPV 8.8 8.5 Sodium 139 Potassium 4.2 Chloride 105 Carbon Dioxide 28 Anion Gap 6 L BUN 10 Creatinine 0.4 L Creat Clearance w eGFR > 60 Random Glucose 81 Calcium 8.2 L Phosphorus 3.1 Magnesium 2.2 Current Medications Generic Name Dose Route Start Last Admin Trade Name Freq PRN Reason Stop Dose Admin Alprazolam 0.25 mg 04/26/18 10:00 04/27/18 09:27 Xanax - PO 0.25 mg BID RANDA Administration Cephalexin HCl 500 mg 04/27/18 10:04/27/18 09:26 Keflex - PO 05/02/18 09:59 500 mg BID RANDA Administration Cholecalciferol 400 unit 04/26/18 10:00 04/27/18 09:27 Vitamin D3 - PO 400 unit DAILY RANDA Administration Enoxaparin Sodium 40 mg 04/26/18 10:00 04/27/18 09:26 Lovenox - SQ 40 mg DAILY RANDA Administration Fluticasone Propionate 2 spray 04/26/18 16:00 04/27/18 09:28 Flonase - NS 2 spray DAILY RANDA Administration Mirtazapine 7.5 mg 04/26/18 22:00 04/26/18 22:05 Remeron - PO 7.5 mg HS RANDA Administration Montelukast Sodium 10 mg 04/26/18 22:00 04/26/18 22:05 Singulair - PO 10 mg HS RANDA Administration Multivitamins/Minerals/Vitamin C 1 tab 04/26/18 10:00 04/27/18 09:25 Tab-A-Vit - PO 1 tab DAILY RANDA Administration Pantoprazole Sodium 40 mg 04/26/18 10:00 04/27/18 09:25 Protonix - PO 40 mg DAILY RANDA Administration Pyridoxine HCl 100 mg 04/27/18 10:00 04/27/18 09:27 Vitamin B6 - PO 100 mg DAILY RANDA Administration Fluticasone/Salmeterol 1 puff 04/26/18 10:00 04/27/18 09:29 Advair 100mcg/50mcg - IH 1 puff BID RANDA Administration ASSESSMENT AND PLAN: 73 year old female with COPD, Anxiety, Dementia, GERD, presented from [address] [place] [address] for evaluation of fever, and 2-3 week history of cough , and worsening gait instability. CXR - increased interstitial markings but no focal infiltrate. Flu swab negative. 1. Acute Metabolic Encephalopathy sec to UTI UA LE 2+, UCx - Coag neg Staph. Rocephin changed to oral Keflex. Afebrile, Hemodynamically Stable. 2. Abnormal Brain Imaging CT Head - L basal ganglia lacunar infarct of indeterminate age. MRI Brain - chronic white matter ischemic changes and L perivascular space cyst. These findings are of uncertain significance - will consult Neurosurgery for opinion and recommendations. If no acute need for investigation/intervention, patient is medically stable for return to AL facility once PT is in agreement re: functional status. 3. COPD - Stable. Continue Advair. 4. Dementia - AAO x 1 - Baseline - Continue Alprazolam 5. GERD - Continue PPI 6. Hypophosphatemia - resolved s/p repletion. DVT prophylaxis - Lovenox SQ
--- NOTE | 2018-04-27 12:06 | PN ---
Progress Note (short form) - Note Progress Note: NEUROSURGERY CONSULT DICTATED History obtained Pt examined CT/MRI reviewed Daughter at bedside H/o COPD and alzheimer's admitted 1 day history of fever and a 3 week history of progressive generalized weakness. Over the past 2-3 weeks, the patient was noted progressive decline in her ability to maintain her ADLs, specifically her ability to ambulate per daughter. Reported to have a fever to 101.4 PE: AF, VSS HEENT-NC/At; Neck- supple; Cor- RR; Lungs- CTA B; Abd- benign A/A/Ox1-2; pleasant and cooperative CN- intact; Motor- 4+ UE/LE B, no drift; Sensation- intact LT/vibration; DTR- hyporeflexic; toes equivocal WBC 10.3 to 7.6; urine culture > 100k coag negative staph Blood culture negative to date Head CT- moderate atrophy, L lateral/inferior BG lacunae Brain MRI- moderate atrophy, moderate periventricular small vessel dz, no acute ischemia, L BG lacunae without associated edema or mass effect Likely baseline cerebrovascular dz with lacunae and periventricular small vessel disease No neurosurgical intervention indicated Baby ASA could be of benefit under the above circumstances Treatment for UTI per medical team
--- NOTE | 2018-04-27 13:20 | CONS ---
DATE OF CONSULTATION: DATE OF DICTATION: 04/27/2018 REQUESTING PHYSICIAN: Jose D Villegas MD ENGINEERING SPECIALIST TECHNICIAN: Mateus Marsh MD, Neurosurgery CHIEF COMPLAINT: Abnormal brain MRI finding. HISTORY OF PRESENT ILLNESS: The patient is a 73-year-old right-handed female with a history of COPD and Alzheimer who is a resident in an assisted living facility. She was brought in for a [id number] of progressive generalized weakness and a 1- day history of fever. She was having difficulty with her activities of daily living. The patient denies any dysuria, cough, or any other signs of infection otherwise. The patient's daughter was at the bedside the entire consultation. The patient denies nausea, vomiting, seizure activity, diplopia, or any new neurological findings. PAST MEDICAL HISTORY: Significant for COPD, Alzheimer. CURRENT MEDICATIONS: Include Singulair, vitamin C, Protonix, vitamin B6, vitamin D3. ALLERGIES: There are no known drug allergies. FAMILY HISTORY: Noncontributory. SOCIAL HISTORY: She does not smoke presently. She quit smoking decades ago. She does not drink alcohol much at all. She lives in an assisted living facility. She is retired. REVIEW OF SYSTEMS: Otherwise, negative for major constitutional, head, neck, cardiovascular, pulmonary, gastrointestinal, genitourinary, endocrinologic, neurologic, or psychological problems except for the above. PHYSICAL EXAMINATION: Vital Signs: T-max 99.3, right now it is 98.9, blood pressure 143/73, pulse rate 91, O2 saturation 95% on room air. HEENT: Shows her to be normocephalic and atraumatic. Anicteric. Neck: Supple with no carotid bruits. Coronary: Demonstrates a regular rhythm. Lungs: Clear bilaterally. Abdomen: Benign. Extremities: Shows no signs of DVT. Neurologic: She is awake, alert, and oriented x1 to 2. Her family is at bedside. Cranial nerve examination is intact 2-12. Motor examination shows at least 4/5 strength bilateral upper and lower extremities. Sensory examination is intact to light touch. Deep tendon reflexes are hyporeflexive throughout. There is no pathologic long tract sign. Gait not tested for safety reasons. LABORATORY EXAMINATION: Shows white blood cell count initially at 10.3. It is now 7.6. INR 1.08, PTT 28.9, serum sodium 139, potassium 4.2, BUN 10, creatinine 0.4. Lactic acid was 0.9 initially. Blood cultures negative today. Urine culture shows coagulase-negative staphylococcus, greater than 100,[address] scan of the head demonstrated moderate cerebral atrophy and moderate cerebral ventricular small vessel disease. There is a hypodensity in the left inferior and lateral basal ganglia. MRI of the brain demonstrated moderate cerebral atrophy with moderate supraventricular small vessel disease. There is no acute ischemia. Left inferolateral basal ganglia lacune noted. There is no associated edema or mass affect. IMPRESSION: 1. Chronic cerebrovascular disease including left inferior/lateral basal ganglia lacune. 2. History of dementia. 3. Chronic obstructive pulmonary disease. RECOMMENDATIONS: The patient presents with some overall functional deterioration over 3 weeks as well as a 1-day history of fever. She had a mildly elevated white blood cell count initially and was found to have a positive urine culture. She is on Keflex currently and previously received ceftriaxone. She is to be monitored for resolution of the urinary tract infection, which likely caused the deterioration. Her intracranial disease appears to be chronic and does not appear to be the cause of her recent deterioration. Because of her cerebrovascular disease, a baby aspirin per day maybe beneficial in this case. I will leave that to the professional discretion of the treating medical team. I also discussed the patient's overall findings as well as care with the daughter at the bedside. All questions were answered. MATEUS MARSH M.D. [id number] MTDD
--- NOTE | 2018-04-27 14:41 | PN ---
Physical Exam: SUBJECTIVE: Patient seen and examined this AM. She states that she is having no pain or concerns. OBJECTIVE: Vital Signs Period Temp Pulse Resp BP Sys/Parmar Pulse Ox Last 24 Hr 98.2 F-99.3 F 87-95 18-20 119-143/59-73 95-95 GENERAL: Alert oriented only to self, no acute distress HEAD: Normocephalic, atraumatic. EYES: PERRL, no scleral icterus EARS, NOSE, THROAT: oropharynx clear without exudates. Moist mucous membranes. NECK: supple without lymphadenopathy LUNGS: CTA b/l, no crackles or wheezes HEART: Regular rate and rhythm, normal S1 and S2 without murmur ABDOMEN: Soft, minimally tender to palpation in suprapubic region, normoactive bowel sounds EXTREMITIES: 2+ pulses, warm, well-perfused. No peripheral edema. NEUROLOGICAL: Cranial nerves II-XII grossly intact. Normal speech. 5/5 strength throughout Laboratory Results - last 24 hr 04/27/18 04/27/18 06:30 06:30 WBC 7.6 RBC 4.39 Hgb 12.3 Hct 36.2 MCV 82.4 MCH 28.0 MCHC 34.0 RDW 14.1 Plt Count 372 MPV 8.5 Sodium 139 Potassium 4.2 Chloride 105 Carbon Dioxide 28 Anion Gap 6 L BUN 10 Creatinine 0.4 L Creat Clearance w eGFR > 60 Random Glucose 81 Calcium 8.2 L Phosphorus 3.1 Magnesium 2.2 Active Medications Generic Name Dose Route Start Last Admin Trade Name Freq PRN Reason Stop Dose Admin Alprazolam 0.25 mg 04/26/18 10:00 04/27/18 09:27 Xanax - PO 0.25 mg BID RANDA Administration Cephalexin HCl 500 mg 04/27/18 10:04/27/18 09:26 Keflex - PO 05/02/18 09:59 500 mg BID RANDA Administration Cholecalciferol 400 unit 04/26/18 10:04/27/18 09:27 Vitamin D3 - PO 400 unit DAILY RANDA Administration Enoxaparin Sodium 40 mg 04/26/18 10:00 04/27/18 09:26 Lovenox - SQ 40 mg DAILY RANDA Administration Fluticasone Propionate 2 spray 04/26/18 16:00 04/27/18 09:28 Flonase - NS 2 spray DAILY RANDA Administration Mirtazapine 7.5 mg 04/26/18 22:00 04/26/18 22:05 Remeron - PO 7.5 mg HS RANDA Administration Montelukast Sodium 10 mg 04/26/18 22:00 04/26/18 22:05 Singulair - PO 10 mg HS RANDA Administration Multivitamins/Minerals/Vitamin C 1 tab 04/26/18 10:00 04/27/18 09:25 Tab-A-Vit - PO 1 tab DAILY RANDA Administration Pantoprazole Sodium 40 mg 04/26/18 10:00 04/27/18 09:25 Protonix - PO 40 mg DAILY RANDA Administration Pyridoxine HCl 100 mg 04/27/18 10:00 04/27/18 09:27 Vitamin B6 - PO 100 mg DAILY RANDA Administration Fluticasone/Salmeterol 1 puff 04/26/18 10:00 04/27/18 09:29 Advair 100mcg/50mcg - IH 1 puff BID RANDA Administration ASSESSMENT/PLAN: 73 yo f w/ PMH COPD and alzheimer's dementia who presented from [address] [place] [address] for a 1 day history of fever and a 3 week history of progressive generalized weakness Acute Metabolic Encephalopathy secondary to UTI -UA noted with 2+ LE and 85 WBCs -Keflex 500 mg PO BID Daily (abx day 3) -Afebrile -IV fluids -PT eval COPD -Singulair 10 mg PO HS -Advair 100/50 -Flonase Alzheimer's Dementia -Remeron 7.5 mg PO HS -Xanax 0.25 mg PO BID PRN for anxiety/agitation DVT Prophylaxis -Lovenox 40 mg SQ IV FEN -Fluids: NS @ 42 cc/hr -Electrolytes: No electrolyte abnormalities, BMP in AM -Nutrition: Na controlled diet Disposition Med/Surg, stable for discharge pending 3 midnight stays for snf placement Visit type - Emergency Visit Emergency Visit: Yes ED Registration Date: 04/26/18 Care time: The patient presented to the Emergency Department on the above date and was hospitalized for further evaluation of their emergent condition. - New Patient This patient is new to me today: No - Critical Care Critical Care patient: No
[2018-04-27] MEDS: MIRTAZAPINE 15 MG TABLET (FP) PO SCH (22:12)
[2018-04-27] MEDS: MONTELUKAST NA 10 MG TABLET PO SCH (22:12)
[2018-04-28] MEDS: FLUTICASONE/SALMETEROL 100 MCG/50 MCG DISKUS IH SCH ×2 (11:08→21:37)
[2018-04-28] MEDS: ENOXAPARIN NA (PORCINE) 40 MG/0.4 ML DISP.SYRIN SQ SCH (11:08)
[2018-04-28] MEDS: FLUTICASONE PROP 0.05% 16 GM NASAL SPRAY NS SCH (11:08)
[2018-04-28] MEDS: CHOLECALCIFEROL (VITAMIN D3) 400 UNIT TABLET (FP) PO SCH (11:09)
[2018-04-28] MEDS: PANTOPRAZOLE 40 MG TABLET (FP) PO SCH (11:09)
[2018-04-28] MEDS: MULTIVITAMINS (DAILY MVI) TABLET (FP) PO SCH (11:09)
[2018-04-28] MEDS: CEPHALEXIN MONOHYDRATE 500 MG CAPSULE (UD) PO SCH ×2 (11:09→21:34)
[2018-04-28] MEDS: PYRIDOXINE HCL (B-6) 50 MG TABLET (FP) PO SCH (11:10)
[2018-04-28] MEDS: ALPRAZolam 0.25 MG TABLET PO SCH ×2 (11:10→21:34)
--- NOTE | 2018-04-28 13:47 | PN ---
Physical Exam: SUBJECTIVE: Patient seen and examined this AM. She states she is doing well. pleasantly dimented OBJECTIVE: Vital Signs Period Temp Pulse Resp BP Sys/Parmar Pulse Ox Last 24 Hr 98.3 F-99.7 F 87-96 18-20 107-127/56-86 93-96 GENERAL: Alert oriented only to self, no acute distress HEAD: Normocephalic, atraumatic. EYES: PERRL, no scleral icterus EARS, NOSE, THROAT: oropharynx clear without exudates. Moist mucous membranes. NECK: supple without lymphadenopathy LUNGS: CTA b/l, no crackles or wheezes HEART: Regular rate and rhythm, normal S1 and S2 without murmur ABDOMEN: Soft, minimally tender to palpation in suprapubic region, normoactive bowel sounds EXTREMITIES: 2+ pulses, warm, well-perfused. No peripheral edema. NEUROLOGICAL: Cranial nerves II-XII grossly intact. Normal speech. 5/5 strength throughout Active Medications Generic Name Dose Route Start Last Admin Trade Name Freq PRN Reason Stop Dose Admin Alprazolam 0.25 mg 04/26/18 10:00 04/28/18 11:10 Xanax - PO 0.25 mg BID RANDA Administration Cephalexin HCl 500 mg 04/27/18 10:00 04/28/18 11:09 Keflex - PO 05/02/18 09:59 500 mg BID RANDA Administration Cholecalciferol 400 unit 04/26/18 10:00 04/28/18 11:09 Vitamin D3 - PO 400 unit DAILY RANDA Administration Enoxaparin Sodium 40 mg 04/26/18 10:00 04/28/18 11:08 Lovenox - SQ 40 mg DAILY RANDA Administration Fluticasone Propionate 2 spray 04/26/18 16:00 04/28/18 11:08 Flonase - NS 2 spray DAILY RANDA Administration Mirtazapine 7.5 mg 04/26/18 22:00 04/27/18 22:12 Remeron - PO 7.5 mg HS RANDA Administration Montelukast Sodium 10 mg 04/26/18 22:00 04/27/18 22:12 Singulair - PO 10 mg HS RANDA Administration Multivitamins/Minerals/Vitamin C 1 tab 04/26/18 10:00 04/28/18 11:09 Tab-A-Vit - PO 1 tab DAILY RANDA Administration Pantoprazole Sodium 40 mg 04/26/18 10:00 04/28/18 11:09 Protonix - PO 40 mg DAILY RANDA Administration Pyridoxine HCl 100 mg 04/27/18 10:00 04/28/18 11:10 Vitamin B6 - PO 100 mg DAILY RANDA Administration Fluticasone/Salmeterol 1 puff 04/26/18 10:00 04/28/18 11:08 Advair 100mcg/50mcg - IH 1 puff BID RANDA Administration ASSESSMENT/PLAN: 73 yo f w/ PMH COPD and alzheimer's dementia who presented from [address] [place] [address] for a 1 day history of fever and a 3 week history of progressive generalized weakness Acute Metabolic Encephalopathy secondary to UTI -UA noted with 2+ LE and 85 WBCs -Keflex 500 mg PO BID Daily (abx day 4) -Afebrile -PT eval noted, will need SNF placement COPD -Singulair 10 mg PO HS -Advair 100/50 -Flonase Alzheimer's Dementia -Remeron 7.5 mg PO HS -Xanax 0.25 mg PO BID PRN for anxiety/agitation DVT Prophylaxis -Lovenox 40 mg SQ IV FEN -Fluids: none -Electrolytes: No electrolyte abnormalities, BMP in AM -Nutrition: Na controlled diet Disposition Med/Surg, stable for discharge pending 3 midnight stays for snf placement Visit type - Emergency Visit Emergency Visit: Yes ED Registration Date: 04/26/18 Care time: The patient presented to the Emergency Department on the above date and was hospitalized for further evaluation of their emergent condition. - New Patient This patient is new to me today: No - Critical Care Critical Care patient: No
--- NOTE | 2018-04-28 15:44 | PN ---
Teaching Attending Note Name of Resident: Joce Nam ATTENDING PHYSICIAN STATEMENT I saw and evaluated the patient. I reviewed the resident's note and discussed the case with the resident. I agree with the resident's findings and plan as documented. SUBJECTIVE: Feels well - no complaints, disoriented, unable to provide coherent history. OBJECTIVE: Afebrile, Hemodynamically Stable. Last Vital Signs Temp Pulse Resp BP Pulse Ox 99.0 F 95 H 18 119/55 L 96 04/28/18 15:23 04/28/18 15:23 04/28/18 15:23 04/28/18 15:23 04/28/18 09:00 HEENT - Atraumatic, Normocephalic Heart - S1, S2, soft SM Lungs - clear to auscultation, no crackles/wheeze Abdomen - Soft, non-tender. Bowel Sounds normal. Extremities - No calf tenderness. Neuro - AAO x 1. Tone/Power normal all 4 extremities. CN intact. KENIA. Current Medications Generic Name Dose Route Start Last Admin Trade Name Tatyana PRN Reason Stop Dose Admin Alprazolam 0.25 mg 04/26/18 10:00 04/28/18 11:10 Xanax - PO 0.25 mg BID RANDA Administration Cephalexin HCl 500 mg 04/27/18 10:00 04/28/18 11:09 Keflex - PO 05/02/18 09:59 500 mg BID RANDA Administration Cholecalciferol 400 unit 04/26/18 10:00 04/28/18 11:09 Vitamin D3 - PO 400 unit DAILY RANDA Administration Enoxaparin Sodium 40 mg 04/26/18 10:00 04/28/18 11:08 Lovenox - SQ 40 mg DAILY RANDA Administration Fluticasone Propionate 2 spray 04/26/18 16:00 04/28/18 11:08 Flonase - NS 2 spray DAILY RANDA Administration Mirtazapine 7.5 mg 04/26/18 22:00 04/27/18 22:12 Remeron - PO 7.5 mg HS RANDA Administration Montelukast Sodium 10 mg 04/26/18 22:00 04/27/18 22:12 Singulair - PO 10 mg HS RANDA Administration Multivitamins/Minerals/Vitamin C 1 tab 04/26/18 10:00 04/28/18 11:09 Tab-A-Vit - PO 1 tab DAILY RANDA Administration Pantoprazole Sodium 40 mg 04/26/18 10:00 04/28/18 11:09 Protonix - PO 40 mg DAILY RANDA Administration Pyridoxine HCl 100 mg 04/27/18 10:00 04/28/18 11:10 Vitamin B6 - PO 100 mg DAILY RANDA Administration Fluticasone/Salmeterol 1 puff 04/26/18 10:00 04/28/18 11:08 Advair 100mcg/50mcg - IH 1 puff BID RANDA Administration ASSESSMENT AND PLAN: 73 year old female with COPD, Anxiety, Dementia, GERD, presented from [address] [place] [address] for evaluation of fever, and 2-3 week history of cough , and worsening gait instability. CXR - increased interstitial markings but no focal infiltrate. Flu swab negative. 1. Acute Metabolic Encephalopathy sec to UTI UA LE 2+, UCx - Coag neg Staph. Rocephin changed to oral Keflex - for 7 days total. Afebrile, Hemodynamically Stable. 2. Abnormal Brain Imaging CT Head - L basal ganglia lacunar infarct of indeterminate age. MRI Brain - chronic white matter ischemic changes and L perivascular space cyst. Neurosurgery evaluated - patient has cerebrovascular disease with recommendation to start Aspirin 81mg. No further intervention recommended. Patient requires acute rehab/SNF and needs appropriate in-patient stay. 3. COPD - Stable. Continue Advair. 4. Dementia - AAO x 1 - Baseline - Continue Alprazolam 5. GERD - Continue PPI 6. Hypophosphatemia - resolved s/p repletion. DVT prophylaxis - Lovenox SQ
[2018-04-28] MEDS ORDERED: ACETAMINOPHEN 325 MG TABLET (FP) PO ONE (19:51)
[2018-04-28] MEDS: MONTELUKAST NA 10 MG TABLET PO SCH (21:34)
[2018-04-29] MEDS: MIRTAZAPINE 15 MG TABLET (FP) PO SCH ×2 (00:28→21:55)
[2018-04-29] MEDS: FLUTICASONE PROP 0.05% 16 GM NASAL SPRAY NS SCH (09:04)
[2018-04-29] MEDS: FLUTICASONE/SALMETEROL 100 MCG/50 MCG DISKUS IH SCH ×2 (09:04→21:55)
[2018-04-29] MEDS: ALPRAZolam 0.25 MG TABLET PO SCH ×2 (09:05→21:55)
[2018-04-29] MEDS: CEPHALEXIN MONOHYDRATE 500 MG CAPSULE (UD) PO SCH ×2 (09:05→21:55)
[2018-04-29] MEDS: MULTIVITAMINS (DAILY MVI) TABLET (FP) PO SCH (09:06)
[2018-04-29] MEDS: PANTOPRAZOLE 40 MG TABLET (FP) PO SCH (09:06)
[2018-04-29] MEDS: CHOLECALCIFEROL (VITAMIN D3) 400 UNIT TABLET (FP) PO SCH (09:06)
[2018-04-29] MEDS: ENOXAPARIN NA (PORCINE) 40 MG/0.4 ML DISP.SYRIN SQ SCH (09:06)
[2018-04-29] MEDS: PYRIDOXINE HCL (B-6) 50 MG TABLET (FP) PO SCH (09:07)
--- NOTE | 2018-04-29 10:27 | PN ---
Physical Exam: SUBJECTIVE: Pt noted to be febrile (101F rectally) last night. coughing noted at bedside rounds today. Pt has no complaints and remains at her baseline oriented x1 (self) today. OBJECTIVE: Vital Signs Period Temp Pulse Resp BP Sys/Parmar Pulse Ox Last 24 Hr 97.7 F-101.2 F 75-97 18-18 116-128/53-74 94 GENERAL: NAD, awake, alert, and oriented to self, pleasant HEENT: Nc/AT, EOMI, CARLA, MMM, no posterior oropharynx exudates appreciated LUNGS: Coarse breath sounds bilaterally, no wheezes, no accessory muscle use. On RA HEART: RRR, S1, S2 without murmur ABDOMEN: Soft, nontender, nondistended, normoactive bowel sounds, no guarding EXTREMITIES: Symmetrical pulses bilaterally, warm, well-perfused, no edema PSYCH: Normal mood, normal affect. Pleasant. Confabulating SKIN: Warm, dry, no rashes or lesions noted Active Medications Generic Name Dose Route Start Last Admin Trade Name Russellq PRN Reason Stop Dose Admin Albuterol/Ipratropium 1 amp 04/29/18 14:00 Duoneb - NEB 04/30/18 08:01 RTID RANDA Alprazolam 0.25 mg 04/26/18 10:00 04/29/18 09:05 Xanax - PO 0.25 mg BID RANDA Administration Cephalexin HCl 500 mg 04/27/18 10:00 04/29/18 09:05 Keflex - PO 05/02/18 09:59 500 mg BID RANDA Administration Cholecalciferol 400 unit 04/26/18 10:00 04/29/18 09:06 Vitamin D3 - PO 400 unit DAILY RANDA Administration Enoxaparin Sodium 40 mg 04/26/18 10:00 04/29/18 09:06 Lovenox - SQ 40 mg DAILY RANDA Administration Fluticasone Propionate 2 spray 04/26/18 16:00 04/29/18 09:04 Flonase - NS 2 spray DAILY RANDA Administration Mirtazapine 7.5 mg 04/26/18 22:00 04/29/18 00:28 Remeron - PO 7.5 mg HS RANDA Administration Montelukast Sodium 10 mg 04/26/18 22:00 04/28/18 21:34 Singulair - PO 10 mg HS RANDA Administration Multivitamins/Minerals/Vitamin C 1 tab 04/26/18 10:00 04/29/18 09:06 Tab-A-Vit - PO 1 tab DAILY RANDA Administration Pantoprazole Sodium 40 mg 04/26/18 10:00 04/29/18 09:06 Protonix - PO 40 mg DAILY RADNA Administration Pyridoxine HCl 100 mg 04/27/18 10:00 04/29/18 09:07 Vitamin B6 - PO 100 mg DAILY RANDA Administration Fluticasone/Salmeterol 1 puff 04/26/18 10:00 04/29/18 09:04 Advair 100mcg/50mcg - IH 1 puff BID RANDA Administration ASSESSMENT/PLAN: 73F with history of COPD, Alzheimer's dementia, anxiety and GERD sent for evaluation of fever found to have UTI causing metabolic encephalopathy Acute metabolic Encephalopathy 2/2 to UTI Alzheimer's Dementia COPD --D/c held today due to fever of 101 last night --CXR ordered --UCx ordered for clearing while on Keflex 500mg BID PO --Influenza Rapid ordered given new cough and viral syndromes prevalent --Continue Keflex 500mg BID (day 5 today) Continue Advair 100/50 BID Continue Singulair 10mg HS PO FEN: Fluids: Not indicated while tolerating PO Electrolyte abnormalities: Labs pending Nutrition: sodium controlled PPX: DVT - Lovenox SQ Daily GI - already on Protonix 40mg qdaily Dispo: Awaiting CXR, Flu, Ucx; will need to be afebrile for ~24hrs before return to [place] Case discussed with Dr. Nelly Tineo, DO - IM PGY-2 Visit type - Emergency Visit Emergency Visit: Yes ED Registration Date: 04/26/18 Care time: The patient presented to the Emergency Department on the above date and was hospitalized for further evaluation of their emergent condition. - New Patient This patient is new to me today: No - Critical Care Critical Care patient: No
[2018-04-29 10:30] LABS: BASO % 0.5 % (0-2.0); EOS % 3.7 % (0-4.5); HEMATOCRIT 37.9 % (32.4-45.2); HEMOGLOBIN 12.8 GM/dL (10.7-15.3); LYMPH % 27.9 % (8-40); MCH 27.8 pg (25.7-33.7); MCHC 33.9 g/dl (32.0-36.0); MEAN CELL VOLUME 82.2 fl (80-96); MEAN PLT VOLUME 8.3 fl (7.5-11.1); MONO % 5.9 % (3.8-10.2); PLATELET COUNT 384 K/MM3 (134-434); RBC 4.62 M/mm3 (3.60-5.2); RDW 13.9 % (11.6-15.6); WHITE BLOOD COUNT 4.7 K/mm3 (4.0-10.0)
[2018-04-29 10:51] LABS: ANION GAP 8 MMOL/L (8-16); BLOOD UREA NITROGEN 12 mg/dL (7-18); CALCIUM 9.2 mg/dL (8.5-10.1); CHLORIDE 107 mmol/L (98-107); CO2 28 mmol/L (21-32); CREATININE 0.4 mg/dL (0.55-1.3); GLUCOSE,RANDOM 131 mg/dL (74-106); POTASSIUM 3.8 mmol/L (3.5-5.1); SODIUM 143 mmol/L (136-145)
--- NOTE | 2018-04-29 12:09 | PN ---
Teaching Attending Note Name of Resident: Donavan Tineo ATTENDING PHYSICIAN STATEMENT I saw and evaluated the patient. I reviewed the resident's note and discussed the case with the resident. I agree with the resident's findings and plan as documented. SUBJECTIVE: Disoriented, unable to provide coherent history, coughing, fever overnight. OBJECTIVE: Febrile overnight to 101.2, Hemodynamically Stable. Cough++ Last Vital Signs Temp Pulse Resp BP Pulse Ox 97.9 F 87 18 122/70 95 04/29/18 11:00 04/29/18 11:00 04/29/18 11:00 04/29/18 11:00 04/29/18 09:00 HEENT - Atraumatic, Normocephalic Heart - S1, S2, soft SM Lungs - some wheeze bilaterally Abdomen - Soft, non-tender. Bowel Sounds normal. Extremities - No calf tenderness. Neuro - AAO x 1. Tone/Power normal all 4 extremities. CN intact. KENIA. Laboratory Results - last 24 hr 04/29/18 04/29/18 09:55 09:55 WBC 4.7 RBC 4.62 Hgb 12.8 Hct 37.9 MCV 82.2 MCH 27.8 MCHC 33.9 RDW 13.9 Plt Count 384 MPV 8.3 Absolute Neuts (auto) 2.9 Neutrophils % 62.0 Lymphocytes % 27.9 D Monocytes % 5.9 Eosinophils % 3.7 D Basophils % 0.5 Nucleated RBC % 0 Sodium 143 Potassium 3.8 Chloride 107 Carbon Dioxide 28 Anion Gap 8 BUN 12 Creatinine 0.4 L Creat Clearance w eGFR > 60 Random Glucose 131 H Calcium 9.2 Current Medications Generic Name Dose Route Start Last Admin Trade Name Tatyana PRN Reason Stop Dose Admin Albuterol/Ipratropium 1 amp 04/29/18 14:00 Duoneb - NEB 04/30/18 08:01 RTID RANDA Alprazolam 0.25 mg 04/26/18 10:00 04/29/18 09:05 Xanax - PO 0.25 mg BID RANDA Administration Cephalexin HCl 500 mg 04/27/18 10:00 04/29/18 09:05 Keflex - PO 05/02/18 09:59 500 mg BID RANDA Administration Cholecalciferol 400 unit 04/26/18 10:00 04/29/18 09:06 Vitamin D3 - PO 400 unit DAILY RANDA Administration Enoxaparin Sodium 40 mg 04/26/18 10:00 04/29/18 09:06 Lovenox - SQ 40 mg DAILY RANDA Administration Fluticasone Propionate 2 spray 04/26/18 16:00 04/29/18 09:04 Flonase - NS 2 spray DAILY RANDA Administration Mirtazapine 7.5 mg 04/26/18 22:00 04/29/18 00:28 Remeron - PO 7.5 mg HS RANDA Administration Montelukast Sodium 10 mg 04/26/18 22:00 04/28/18 21:34 Singulair - PO 10 mg HS RANDA Administration Multivitamins/Minerals/Vitamin C 1 tab 04/26/18 10:00 04/29/18 09:06 Tab-A-Vit - PO 1 tab DAILY RANDA Administration Pantoprazole Sodium 40 mg 04/26/18 10:00 04/29/18 09:06 Protonix - PO 40 mg DAILY RANDA Administration Pyridoxine HCl 100 mg 04/27/18 10:00 04/29/18 09:07 Vitamin B6 - PO 100 mg DAILY RANDA Administration Fluticasone/Salmeterol 1 puff 04/26/18 10:00 04/29/18 09:04 Advair 100mcg/50mcg - IH 1 puff BID RANDA Administration ASSESSMENT AND PLAN: 73 year old female with COPD, Anxiety, Dementia, GERD, CVA, presented from [address] [place] [address] for evaluation of fever, and 2-3 week history of cough, and worsening gait instability. CXR - increased interstitial markings but no focal infiltrate. Flu swab negative. 1. Acute Metabolic Encephalopathy sec to UTI - resolved, mental status at baseline UA LE 2+, UCx - Staph epi. Rocephin changed to oral Keflex - for 7 days total. Spiked Temp overnight - Tmax 101.2. Hemodynamically Stable. WBC wnl. Repeat Urine Cx, CXR, and Flu swab in light of cough and scattered wheeze. 2. Hx of Cerebrovascular Disease CT Head - L basal ganglia lacunar infarct of indeterminate age. MRI Brain - chronic white matter ischemic changes and L perivascular space cyst. Neurosurgery evaluated - patient has cerebrovascular disease with recommendation to start Aspirin 81mg. No further intervention recommended. Patient requires acute rehab/SNF and needs appropriate in-patient stay. 3. COPD - some wheeze today. Continue Advair. Will also give DuoNebs. 4. Dementia - AAO x 1 - Baseline - Continue Alprazolam 5. GERD - Continue PPI DVT prophylaxis - Lovenox SQ
[2018-04-29] MEDS: ALBUTEROL SO4 2.5/IPRATROPIUM 0.5 INH SOL 3 ML VIAL.NEB. NEB SCH ×2 (13:00→20:43)
[2018-04-29] MEDS ORDERED: ALBUTEROL SO4 2.5/IPRATROPIUM 0.5 INH SOL 3 ML VIAL.NEB. NEB PRN (13:53)
[2018-04-29] MEDS ORDERED: PT OWN MED DRAWER 7, Y5N ONE (20:38)
[2018-04-29] MEDS: MONTELUKAST NA 10 MG TABLET PO SCH (21:55)
[2018-04-30 08:17] VITALS: BP 117/73; PULSE 107; TEMP 98.3
[2018-04-30] MEDS: MULTIVITAMINS (DAILY MVI) TABLET (FP) PO SCH (09:36)
[2018-04-30] MEDS: ENOXAPARIN NA (PORCINE) 40 MG/0.4 ML DISP.SYRIN SQ SCH (09:36)
[2018-04-30] MEDS: CHOLECALCIFEROL (VITAMIN D3) 400 UNIT TABLET (FP) PO SCH (09:36)
[2018-04-30] MEDS: CEPHALEXIN MONOHYDRATE 500 MG CAPSULE (UD) PO SCH (09:36)
[2018-04-30] MEDS: PANTOPRAZOLE 40 MG TABLET (FP) PO SCH (09:36)
[2018-04-30] MEDS: ALPRAZolam 0.25 MG TABLET PO SCH (09:36)
[2018-04-30] MEDS: PYRIDOXINE HCL (B-6) 50 MG TABLET (FP) PO SCH (09:37)
[2018-04-30] MEDS: FLUTICASONE PROP 0.05% 16 GM NASAL SPRAY NS SCH (09:38)
[2018-04-30] MEDS: FLUTICASONE/SALMETEROL 100 MCG/50 MCG DISKUS IH SCH (09:38)
[2018-04-30] MEDS: ALBUTEROL SO4 2.5/IPRATROPIUM 0.5 INH SOL 3 ML VIAL.NEB. NEB SCH (09:41)
--- NOTE | 2018-04-30 13:06 | DS ---
Physical Exam: SUBJECTIVE: Disoriented, unable to provide coherent history, no further fever. OBJECTIVE: Afebrile, Hemodynamically Stable. Last Vital Signs Temp Pulse Resp BP Pulse Ox 98.3 F 107 H 18 117/73 95 04/30/18 08:16 04/30/18 08:16 04/30/18 09:00 04/30/18 08:16 04/30/18 09:00 HEENT - Atraumatic, Normocephalic Heart - S1, S2, soft SM Lungs - some occasional wheeze bilaterally Abdomen - Soft, non-tender. Bowel Sounds normal. Extremities - No calf tenderness. Neuro - AAO x 1. Tone/Power normal all 4 extremities. CN intact. KENIA. Laboratory Tests 04/25/18 04/25/18 04/25/18 20:30 21:20 21:20 WBC 10.3 H RBC 4.84 Hgb 13.6 Hct 39.9 MCV 82.5 MCH 28.1 MCHC 34.1 RDW 14.2 Plt Count 429 MPV 8.3 Absolute Neuts (auto) 6.6 Neutrophils % 64.5 Lymphocytes % 22.8 Monocytes % 11.3 H Eosinophils % 1.1 Basophils % 0.3 Nucleated RBC % 0 PT with INR 12.40 INR 1.05 PTT (Actin FS) 30.3 VBG pH POC VBG pCO2 POC VBG pO2 Mixed VBG HCO3 Sodium Potassium Chloride Carbon Dioxide Anion Gap BUN Creatinine Creat Clearance w eGFR Random Glucose Lactic Acid Calcium Phosphorus Magnesium Total Bilirubin AST ALT Alkaline Phosphatase Troponin I Total Protein Albumin Urine Color Urine Appearance Urine pH Ur Specific [place] Urine Protein Urine Glucose (UA) Urine Ketones Urine Blood Urine Nitrite Urine Bilirubin Urine Urobilinogen Ur Leukocyte Esterase Urine WBC (Auto) Urine RBC (Auto) Ur Epithelial Cells Urine Mucus Influenza A (Rapid) Negative Influenza B (Rapid) Negative 04/25/18 04/25/18 04/25/18 21:20 21:20 21:20 WBC RBC Hgb Hct MCV MCH MCHC RDW Plt Count MPV Absolute Neuts (auto) Neutrophils % Lymphocytes % Monocytes % Eosinophils % Basophils % Nucleated RBC % PT with INR INR PTT (Actin FS) VBG pH 7.39 POC VBG pCO2 45.3 POC VBG pO2 42.0 Mixed VBG HCO3 27.1 H Sodium 138 Potassium 4.3 Chloride 104 Carbon Dioxide 27 Anion Gap 7 L BUN 20 H Creatinine 0.4 L Creat Clearance w eGFR > 60 Random Glucose 99 Lactic Acid 0.9 Calcium 9.7 Phosphorus Magnesium Total Bilirubin 0.3 AST 29 ALT 39 Alkaline Phosphatase 140 H Troponin I Total Protein 7.2 Albumin 3.4 Urine Color Urine Appearance Urine pH Ur Specific [place] Urine Protein Urine Glucose (UA) Urine Ketones Urine Blood Urine Nitrite Urine Bilirubin Urine Urobilinogen Ur Leukocyte Esterase Urine WBC (Auto) Urine RBC (Auto) Ur Epithelial Cells Urine Mucus Influenza A (Rapid) Influenza B (Rapid) 04/25/18 04/25/18 04/26/18 21:20 23:30 01:30 WBC RBC Hgb Hct MCV MCH MCHC RDW Plt Count MPV Absolute Neuts (auto) Neutrophils % Lymphocytes % Monocytes % Eosinophils % Basophils % Nucleated RBC % PT with INR INR PTT (Actin FS) VBG pH POC VBG pCO2 POC VBG pO2 Mixed VBG HCO3 Sodium Potassium Chloride Carbon Dioxide Anion Gap BUN Creatinine Creat Clearance w eGFR Random Glucose Lactic Acid 0.5 Calcium Phosphorus Magnesium Total Bilirubin AST ALT Alkaline Phosphatase Troponin I < 0.02 Total Protein Albumin Urine Color Yellow Urine Appearance Clear Urine pH 6.0 Ur Specific [place] 1.017 Urine Protein Negative Urine Glucose (UA) Negative Urine Ketones Negative Urine Blood Negative Urine Nitrite Negative Urine Bilirubin Negative Urine Urobilinogen Negative Ur Leukocyte Esterase 2+ H Urine WBC (Auto) 85 Urine RBC (Auto) 1 Ur Epithelial Cells Rare Urine Mucus Rare Influenza A (Rapid) Influenza B (Rapid) 04/26/18 04/26/18 04/26/18 09:50 09:50 09:50 WBC 6.6 RBC 4.37 Hgb 12.6 Hct 36.3 MCV 83.1 MCH 28.8 MCHC 34.7 RDW 14.2 Plt Count 380 MPV 8.8 Absolute Neuts (auto) Neutrophils % Lymphocytes % Monocytes % Eosinophils % Basophils % Nucleated RBC % PT with INR 12.70 INR 1.08 PTT (Actin FS) 28.9 VBG pH POC VBG pCO2 POC VBG pO2 Mixed VBG HCO3 Sodium 138 Potassium 4.0 Chloride 105 Carbon Dioxide 26 Anion Gap 7 L BUN 13 Creatinine 0.3 L Creat Clearance w eGFR > 60 Random Glucose 101 Lactic Acid Calcium 8.2 L Phosphorus 2.1 L Magnesium 2.2 Total Bilirubin AST ALT Alkaline Phosphatase Troponin I Total Protein Albumin Urine Color Urine Appearance Urine pH Ur Specific [place] Urine Protein Urine Glucose (UA) Urine Ketones Urine Blood Urine Nitrite Urine Bilirubin Urine Urobilinogen Ur Leukocyte Esterase Urine WBC (Auto) Urine RBC (Auto) Ur Epithelial Cells Urine Mucus Influenza A (Rapid) Influenza B (Rapid) 04/27/18 04/27/18 04/29/18 06:30 06:30 09:55 WBC 7.6 4.7 RBC 4.39 4.62 Hgb 12.3 12.8 Hct 36.2 37.9 MCV 82.4 82.2 MCH 28.0 27.8 MCHC 34.0 33.9 RDW 14.1 13.9 Plt Count 372 384 MPV 8.5 8.3 Absolute Neuts (auto) 2.9 Neutrophils % 62.0 Lymphocytes % 27.9 D Monocytes % 5.9 Eosinophils % 3.7 D Basophils % 0.5 Nucleated RBC % 0 PT with INR INR PTT (Actin FS) VBG pH POC VBG pCO2 POC VBG pO2 Mixed VBG HCO3 Sodium 139 Potassium 4.2 Chloride 105 Carbon Dioxide 28 Anion Gap 6 L BUN 10 Creatinine 0.4 L Creat Clearance w eGFR > 60 Random Glucose 81 Lactic Acid Calcium 8.2 L Phosphorus 3.1 Magnesium 2.2 Total Bilirubin AST ALT Alkaline Phosphatase Troponin I Total Protein Albumin Urine Color Urine Appearance Urine pH Ur Specific [place] Urine Protein Urine Glucose (UA) Urine Ketones Urine Blood Urine Nitrite Urine Bilirubin Urine Urobilinogen Ur Leukocyte Esterase Urine WBC (Auto) Urine RBC (Auto) Ur Epithelial Cells Urine Mucus Influenza A (Rapid) Influenza B (Rapid) 04/29/18 04/29/18 09:55 18:15 WBC RBC Hgb Hct MCV MCH MCHC RDW Plt Count MPV Absolute Neuts (auto) Neutrophils % Lymphocytes % Monocytes % Eosinophils % Basophils % Nucleated RBC % PT with INR INR PTT (Actin FS) VBG pH POC VBG pCO2 POC VBG pO2 Mixed VBG HCO3 Sodium 143 Potassium 3.8 Chloride 107 Carbon Dioxide 28 Anion Gap 8 BUN 12 Creatinine 0.4 L Creat Clearance w eGFR > 60 Random Glucose 131 H Lactic Acid Calcium 9.2 Phosphorus Magnesium Total Bilirubin AST ALT Alkaline Phosphatase Troponin I Total Protein Albumin Urine Color Urine Appearance Urine pH Ur Specific [place] Urine Protein Urine Glucose (UA) Urine Ketones Urine Blood Urine Nitrite Urine Bilirubin Urine Urobilinogen Ur Leukocyte Esterase Urine WBC (Auto) Urine RBC (Auto) Ur Epithelial Cells Urine Mucus Influenza A (Rapid) Negative Influenza B (Rapid) Negative Date of Admission:04/26/18 Date of Discharge: 04/30/18 Minutes to complete discharge: 45 Discharge Summary Reason For Visit: URINARY TRACT INFECTION/FEVER/DEMENTIA Current Active Problems Dementia (Acute) Fever (Acute) UTI (urinary tract infection) (Acute) Hospital Course: 73 year old female with COPD, Anxiety, Dementia, GERD, CVA, presented from [address] [place] [address] for evaluation of fever, and 2-3 week history of cough, and worsening gait instability. CXR - increased interstitial markings but no focal infiltrate. Flu swab negative. 1. Acute Metabolic Encephalopathy sec to UTI - resolved, mental status at baseline UA LE 2+, UCx - Staph epi. Rocephin initially changed to oral Keflex - for 3 additional days of Cipro due to greater sensitivity to complete 7 day course total. Afebrile/Hemodynamically Stable for > 24 hours. Repeat Urine Cx, CXR, Influenza screen clear. 2. Hx of Cerebrovascular Disease CT Head - L basal ganglia lacunar infarct of indeterminate age. MRI Brain - chronic white matter ischemic changes and L perivascular space cyst. Neurosurgery evaluated - patient has cerebrovascular disease with recommendation to start Aspirin 81mg. No further intervention recommended. Patient requires acute rehab/SNF and needs appropriate in-patient stay. 3. COPD - some wheeze today. Continue Advair. Will also give DuoNebs. 4. Dementia - AAO x 1 - Baseline - Continue Alprazolam 5. GERD - Continue PPI Medically and Hemodynamically stable for discharge to SNF. Condition: Good - Instructions Diet, Activity, Other Instructions: You were admitted to the hospital and found to have a urinary tract infection ( bladder infection) which was probably. You were given antibiotics and improved. You were seen by physical therapy and were able to walk 100 feet so you were deemed medically safe to return to your assisted living facility. Of note, you had some weakness so a Head CT and a Brain MRI were done which did not reveal any signs of an new or recent stroke. Please continue all of your medications as they are prescribed. You should follow up with your primary care physician within one week of discharge from the hospital. If you have any concerning symptoms, you should be evaluated by your doctor or return to the emergency department. Referrals: Steven Velasco [Primary Care Provider] - Disposition: [facility] - Home Medications Comprehensive Discharge Medication List: Ambulatory Orders Alprazolam 0.25 mg PO BID tablet 08/25/12 Cholecalciferol (Vitamin D3) [Vitamin D3] 400 unit PO DAILY tablet 09/08/12 Magnesium Oxide [Magnesium] 500 mg PO 2 Caps daily capsule 09/08/12 Multivitamin [Daily Vitamin] 1 each PO DAILY tablet 09/08/12 Pyridoxine HCl [Vitamin B-6] 200 mg PO 2 Tabs Daily tablet 09/08/12 Alprazolam 0.25 mg PO BID 08/13/14 Pantoprazole Sodium [Protonix] 40 mg PO DAILY 08/13/14 Montelukast Na [Singulair -] 10 mg PO HS 09/25/14 Guaifenesin [Expectorant] 200 mg PO QID PRN #30 tablet 05/31/15 Ciprofloxacin [Cipro -] 500 mg PO Q12H 3 Days #6 tablet 04/30/18 Aspirin 81mg daily. This patient is new to me today: No Emergency Visit: Yes ED Registration Date: 04/26/18 Care time: The patient presented to the Emergency Department on the above date and was hospitalized for further evaluation of their emergent condition. Critical Care patient: No - Discharge Referral Referred to [facility] No
[2018-04-30] MEDS ORDERED: ASPIRIN 81 MG CHEWABLE TABLETS PO SCH (13:15)
== END 2018-04-30 14:21 | DRG 689 ==
LOC: JER 19:48 → JERBED 04-26 02:25 → J7W 04-26 04:38
PROVIDERS: ADMIT Internal Medicine
DX: N39.0 Urinary tract infection, site not specified (principal); G93.41 Metabolic encephalopathy; J44.9 Chronic obstructive pulmonary disease, unspecified; G30.9 Alzheimer's disease, unspecified; F02.80 Dementia in other diseases classified elsewhere, unspecified severity, without behavioral disturbance, psychotic disturbance, mood disturbance, and anxiety; K21.9 Gastro-esophageal reflux disease without esophagitis; E83.39 Other disorders of phosphorus metabolism
CPT/HCPCS: 36415; 70450-TC; 70551-TC; 71045-TC-FY; 80048; 80053; 81003; 81015; 82803; 83605; 83735; 84100; 84484; 85025; 85027; 85610; 85730; 87040; 87086; 87186; 87804; 93005; 93010; 94640; 97116-GP; 97161-GP; 99282-25; J7030

== ENCOUNTER 2018-05-30 20:13 | Inpatient (IN) | payer OTHER, MEDICARE ==
--- NOTE | 2018-05-30 20:34 | PDOC ---
History of Present Illness - General Chief Complaint: Nausea/Vomiting Stated Complaint: VOMIT Time Seen by Provider: 05/30/18 20:34 - History of Present Illness Initial Comments: 73 year old female with COPD, Anxiety, Dementia, GERD, CVA, presented from [address] [place] [address] for nausea, vomiting, and constipation since this AM. Per NH, she has had three episodes of NBNB vomiting as verbally relayed to me from [facility]. She also can't recall the last time the patient had a bowel movement. The patient is very pleasantly demented at bedside which is apparently her baseline. 05/30/18 20:35 Past History - Past Medical History Allergies/Adverse Reactions: Allergies Allergy/AdvReac Type Severity Reaction Status Date / Time No Known Drug Allergies Allergy Verified 05/30/18 20:34 seasonal Allergy Uncoded 05/30/18 20:34 Home Medications: Ambulatory Orders Alprazolam 0.25 mg PO BID tablet 08/25/12 Cholecalciferol (Vitamin D3) [Vitamin D3] 400 unit PO DAILY tablet 09/08/12 Magnesium Oxide [Magnesium] 500 mg PO 2 Caps daily capsule 09/08/12 Multivitamin [Daily Vitamin] 1 each PO DAILY tablet 09/08/12 Pyridoxine HCl [Vitamin B-6] 200 mg PO 2 Tabs Daily tablet 09/08/12 Alprazolam 0.25 mg PO BID 08/13/14 Pantoprazole Sodium [Protonix] 40 mg PO DAILY 08/13/14 Montelukast Na [Singulair -] 10 mg PO HS 09/25/14 Guaifenesin [Expectorant] 200 mg PO QID PRN #30 tablet 05/31/15 Aspirin Coated [Ecotrin -] 81 mg PO DAILY #30 tablet.ec 04/30/18 Ciprofloxacin [Cipro -] 500 mg PO Q12H 3 Days #6 tablet 04/30/18 Anemia: No Asthma: Yes Cancer: No Cardiac Disorders: No CVA: No COPD: Yes CHF: No Dementia: Yes (FORGETFUL, MILD DEMENTIA) Diabetes: No GI Disorders: Yes (ACID REFLUX) Disorders: No HTN: No Hypercholesterolemia: No Liver Disease: No Psychiatric Problems: Yes (ANXIETY) Seizures: No Thyroid Disease: No - Surgical History Abdominal Surgery: No Appendectomy: No Cardiac Surgery: No Cholecystectomy: No Lung Surgery: No Neurologic Surgery: No Orthopedic Surgery: No - Immunization History Td Vaccination: Yes Immunization Up to Date: Yes - Suicide/Smoking/Psychosocial Hx Smoking Status: No Smoking History: Never smoked Have you smoked in the past 12 months: No Number of Cigarettes Smoked Daily: 0 If you are a former smoker, when did you quit?: OVER 40 YREAS AGO Information on smoking cessation initiated: No Hx Alcohol Use: No Drug/Substance Use Hx: No Substance Use Type: None Hx Substance Use Treatment: No *Physical Exam - Vital Signs Last Vital Signs Temp Pulse Resp BP Pulse Ox 98.2 F 69 18 136/81 96 05/30/18 20:13 05/30/18 20:13 05/30/18 20:13 05/30/18 20:13 05/30/18 20:13 Moderate Sedation - Procedure Monitoring Vital Signs: Procedure Monitoring Vital Signs Temperature 98.2 F 05/30/18 20:13 Pulse Rate 69 05/30/18 20:13 Respiratory Rate 18 05/30/18 20:13 Blood Pressure 136/81 05/30/18 20:13 O2 Sat by Pulse Oximetry (%) 96 05/30/18 20:13 *DC/Admit/Observation/Transfer - Discharge Dispostion Condition at time of disposition: Fair - Referrals - Patient Instructions - Post Discharge Activity
--- NOTE | 2018-05-30 20:49 | PDOC ---
Attending Attestation - HPI HPI: 05/30/18 22:22 The patient is a 73 year old female with a significant past medical history of COPD, anxiety, GERD, and dementia who presents to the emergency department with nausea and vomiting since this morning. She reports some associated abdominal pain with her symptoms. She denies any other symptoms or complaints. - Physicial Exam PE: 05/30/18 22:22 Agree with resident exam. <Graeme Cruz - Last Filed: 05/30/18 22:22> - Resident Resident Name: Manjit Martinez - ED Attending Attestation I have performed the following: I have examined & evaluated the patient, The case was reviewed & discussed with the resident, I agree w/resident's findings & plan - Medical Decision Making 05/30/18 23:03 73-year-old female with an episode of vomiting and left lower quadrant abdominal pain Labs and urinalysis pending CT scan of the abdomen and pelvis performed with disposition pending results <Mary Ann Juarez - Last Filed: 05/30/18 23:03> Attestations - Attestations 05/30/18 22:22 Documentation prepared by Graeme Cruz, acting as emergency medical technician/driver for Mary Ann Juarez DO, MD. <Graeme Cruz - Last Filed: 05/30/18 22:22>
[2018-05-30] MEDS ORDERED: PANTOPRAZOLE SODIUM 40 MG VIAL IVPUSH ONE (21:01)
[2018-05-30] MEDS ORDERED: FAMOTIDINE 20 MG/50 ML IVPB 20 MG/50 ML MG IVPB ONE ×2 (21:01→21:42)
[2018-05-30] MEDS ORDERED: PANTOPRAZOLE SODIUM 40 MG/100 ML BAG IVPB ONE (21:42)
[2018-05-30] MEDS ORDERED: SODIUM CHLORIDE 0.9% 500 ML INFUS.BAG IV ONE (21:43)
[2018-05-30 22:07] LABS: BASO % 0.3 % (0-2.0); HEMATOCRIT 39.7 % (32.4-45.2); HEMOGLOBIN 13.3 GM/dL (10.7-15.3); LYMPH % 5.6 % (8-40); MCH 27.2 pg (25.7-33.7); MCHC 33.6 g/dl (32.0-36.0); MEAN CELL VOLUME 81.1 fl (80-96); MEAN PLT VOLUME 7.9 fl (7.5-11.1); MONO % 2.1 % (3.8-10.2); PLATELET COUNT 443 K/MM3 (134-434); RBC 4.89 M/mm3 (3.60-5.2); RDW 14.7 % (11.6-15.6); WHITE BLOOD COUNT 16.3 K/mm3 (4.0-10.0)
[2018-05-30 22:19] LABS: INR 1.03 (0.83-1.09); PROTHROMBIN TIME (PATIENT) 12.2 SEC (9.7-13.0)
--- NOTE | 2018-05-30 22:26 | PDOC ---
*Physical Exam - Vital Signs Last Vital Signs Temp Pulse Resp BP Pulse Ox 98.2 F 69 18 136/81 96 05/30/18 20:13 05/30/18 20:13 05/30/18 20:13 05/30/18 20:13 05/30/18 20:13 ED Treatment Course - LABORATORY CBC & Chemistry Diagram: 05/30/18 22:00 05/30/18 22:00 - ADDITIONAL ORDERS Additional order review: Laboratory Results 05/30/18 22:00 PT with INR 12.20 INR 1.03 05/30/18 22:00 RBC 4.89 MCV 81.1 MCHC 33.6 RDW 14.7 MPV 7.9 Neutrophils % 92.0 H D Lymphocytes % 5.6 L D Monocytes % 2.1 L Eosinophils % 0.0 D Basophils % 0.3 - Medications Given in the ED: ED Medications Discontinued Medications Generic Name Dose Route Start Last Admin Trade Name Freq PRN Reason Stop Dose Admin Famotidine/Sodium Chloride 20 mg in 50 mls @ 100 mls/hr 05/30/18 21:01 21:50 Pepcid 20 Mg Premixed Ivpb - IVPB 05/30/18 21:30 100 mls/hr ONCE ONE Administration Sodium Chloride 1,000 ml 05/30/18 21:43 05/30/18 21:45 Normal Saline - IV 05/30/18 21:44 1,000 ml ONCE ONE Administration Medical Decision Making - Medical Decision Making 05/30/18 22:25 The patient was signed out to me by Dr. Martinez, day team. The patient is a 73F who presents with nausea and vomiting, despite having no nausea and vomiting in our ED. Pt otherwise comfortable, pending labs and imaging. WBC of 16. 05/30/18 23:53 CT shows no SBO with mild acute diverticulitis. Also shows PNA. UA shows UTI. Due to 3 concomitant infections, will admit for IV abx and monitoring. 05/31/18 00:[address] Ramirez for admission. *DC/Admit/Observation/Transfer Diagnosis at time of Disposition: Diverticulitis large intestine Qualifiers: Diverticulitis bleeding: without bleeding Diverticulitis complication: unspecified complication status Qualified Code(s): K57.32 - Diverticulitis of large intestine without perforation or abscess without bleeding - Discharge Dispostion Disposition: HOME Condition at time of disposition: Guarded Decision to Admit order: Yes - Prescriptions Prescriptions: Ciprofloxacin [Cipro -] 500 mg PO Q12H #14 tablet Metronidazole 500 mg PO TID #21 tablet - Referrals - Patient Instructions Printed Discharge Instructions: DI for Diverticulitis Additional Instructions: Your ER visit is not complete until your follow up with your primary care physician. Please follow up with your primary care physician in 1-2 days. Please return to the ER if you have any signs or symptoms of chest pain, shortness of breath, uncontrollable fever, chills, nausea, vomiting, numbness, tingling, or weakness in any part of your body, changes in vision, or slurred speech. Please take your medications as prescribed. Please return to the ER if symptoms persist, worsen, or new symptoms arise. - Post Discharge Activity
[2018-05-30 22:38] LABS: ALBUMIN 3.5 g/dl (3.4-5.0); ALK PHOS 143 U/L (45-117); AMYLASE 54 U/L (25-115); ANION GAP 7 MMOL/L (8-16); BILIRUBIN,TOTAL 0.4 mg/dL (0.2-1); BLOOD UREA NITROGEN 21 mg/dL (7-18); CALCIUM 9.2 mg/dL (8.5-10.1); CHLORIDE 105 mmol/L (98-107); CO2 27 mmol/L (21-32); CREATININE 0.5 mg/dL (0.55-1.3); GLUCOSE,RANDOM 119 mg/dL (74-106); LIPASE 168 U/L (73-393); N-TERMINAL BNP 62.5 pg/ml (5-125); POTASSIUM 4.5 mmol/L (3.5-5.1); SGOT/AST 21 U/L (15-37); SGPT/ALT 24 U/L (13-61); SODIUM 139 mmol/L (136-145); TOT PROT 7.3 g/dl (6.4-8.2)
[2018-05-30 23:05] LABS: URINE APPEARANCE CLOUDY; URINE BILIRUBIN NEGATIVE (<2.0 mg/dL); URINE COLOR YELLOW; URINE GLUCOSE (UA) NEGATIVE (NEGATIVE); URINE KETONE TRACE (NEGATIVE); URINE LEUK ESTERASE 1+ (NEGATIVE); URINE NITRITE NEGATIVE (NEGATIVE); URINE PROTEIN 1+ (NEGATIVE); URINE UROBILINOGEN NEGATIVE mg/dL (0.2-1.0)
[2018-05-30 23:10] LABS: EPI CELLS RARE /HPF (FEW); URINE MUCUS MODERATE
[2018-05-30 23:22] LABS: PLATELET ESTIMATE ADEQUATE
[2018-05-31] MEDS ORDERED: PIPERACILLIN/TAZOB 4.5 GM 4.5 GM in DEXTROSE 5%-WATER 100 ML IVPB ONE (00:35)
[2018-05-31] MEDS ORDERED: VANCOMYCIN 1,000 MG in DEXTROSE 5%-WATER - 250 ML IVPB ONE (00:35)
--- NOTE | 2018-05-31 00:49 | PN ---
Teaching Attending Note Name of Resident: Chelita Valenzuela ATTENDING PHYSICIAN STATEMENT I saw and evaluated the patient. I reviewed the resident's note and discussed the case with the resident. I agree with the resident's findings and plan as documented. SUBJECTIVE: Patient is a 73 year old woman with PMH of COPD, Anxiety, Dementia, Bladder mesh placement, Hysterectomy, Bilateral cataract surgery, GERD and CVA who presented from [address] [place] [address] for nausea, vomiting, and constipation since this AM. Per [facility], she has had three episodes of NBNB vomiting. [facility] staff can't recall the last time the patient had a bowel movement. The patient has dementia and is at her baseline. There was no reported chest pain, shortness of breath, fever, chills, numbness, tingling, or weakness in any part of your body, changes in vision, or slurred speech. OBJECTIVE: Alert Vital Signs Period Temp Pulse Resp BP Sys/Parmar Pulse Ox Last 24 Hr 98.2 F 69 18 136/81 96 HEENT: No Jaundice, eye redness or discharge, PERRLA, EOMI. Normocephalic, atraumatic. External ears are normal and hearing is grossly intact. No nasal discharge. Neck: Supple, nontender. No palpable adenopathy or thyromegaly. No JVD Chest: Good effort. Diminished breath sounds with prolonged expiration. Clear to percussion. Heart: Regular. No S3, rub or murmur Abdomen: Not distended, soft, suprapubic tenderness and no HSM. No rebound or guarding. Normal bowel sounds. Ext: Peripheral pulses intact. No leg edema. Skin: Warm and dry. No petechiae, rash or ecchymosis. Neuro: Alert. Oriented to person. Confused. Dementia. CN 2-12 grossly intact. Sensation grossly intact in all four extremities and DTR are symmetric. Psych: Appropriate mood and affect. Current Medications Generic Name Dose Route Start Last Admin Trade Name Freq PRN Reason Stop Dose Admin Vancomycin HCl 1,000 mg/ 250 mls @ 250 mls/hr 05/31/18 00:35 Dextrose IVPB 05/31/18 01:34 ONCE ONE Protocol Piperacillin Sod/Tazobactam 100 mls @ 200 mls/hr 05/31/18 00:35 Sod 4.5 gm/ Dextrose IVPB 05/31/18 01:04 ONCE ONE Protocol Home Medications Medication Instructions Recorded Alprazolam 0.25 mg PO BID tablet 08/25/12 Cholecalciferol (Vitamin D3) 400 unit PO DAILY tablet 09/08/12 [Vitamin D3] Magnesium Oxide [Magnesium] 500 mg PO 2 Caps daily capsule 09/08/12 Multivitamin [Daily Vitamin] 1 each PO DAILY tablet 09/08/12 Pyridoxine HCl [Vitamin B-6] 200 mg PO 2 Tabs Daily tablet 09/08/12 Alprazolam 0.25 mg PO BID 08/13/14 Pantoprazole Sodium [Protonix] 40 mg PO DAILY 08/13/14 Montelukast Na [Singulair -] 10 mg PO HS 09/25/14 Guaifenesin [Expectorant] 200 mg PO QID PRN #30 tablet 05/31/15 Aspirin Coated [Ecotrin -] 81 mg PO DAILY #30 tablet.ec 04/30/18 Ciprofloxacin [Cipro -] 500 mg PO Q12H 3 Days #6 tablet 04/30/18 Ciprofloxacin [Cipro -] 500 mg PO Q12H #14 tablet 05/30/18 Metronidazole 500 mg PO TID #21 tablet 05/30/18 Abnormal Lab Results 05/30/18 05/30/18 05/30/18 22:00 22:00 22:35 WBC 16.3 H Plt Count 443 H Absolute Neuts (auto) 15.0 H Neutrophils % 92.0 H D Neutrophils % (Manual) 90.0 H Lymphocytes % 5.6 L D Lymphocytes % (Manual) 4.0 L Monocytes % 2.1 L Anion Gap 7 L BUN 21 H Creatinine 0.5 L Random Glucose 119 H Alkaline Phosphatase 143 H Urine Protein 1+ H Urine Ketones Trace H Urine Blood 3+ H Ur Leukocyte Esterase 1+ H ASSESSMENT AND PLAN: 1. Diverticulitis/Pneumonia (HCAP) - CT scan of abdomen/pelvis with IV and PO contrast showed left lung base infiltrate, descending colon diverticulitis, possible enteritis and the appendix was not visualized. Consult GI. Being treated with vancomycin and zosyn. Do nasal swab for MRSA colonization. Give duoneb PRN and check HbA1c. EKG shows NSR with no ST-T wave changes. Consult ID. Nonvisualization of the appendix is a concern despite IV and PO contrast - has no history of appendectomy. If symptoms persist consider RLQ sonogram/? surgical consult. Has painless hematuria without symptoms of UTI. Has history of bladder mesh placement. Will repeat urinalysis once stable and if hematuria persists, will consult urology. Continue comprehensive dementia care. 2. DVT prophylaxis - Lovenox 40 mg SQ q 24 hours. 3. Advance directives - Full code
[2018-05-31] MEDS ORDERED: VANCOMYCIN 1 GRAM (PRE-DOCKED) 1,000 MG/250 ML BAG IVPB ONE ×2 (01:42→15:00)
[2018-05-31] MEDS ORDERED: PIPERACILLIN/TAZOB 4.5 GM 4.5 GM/100 ML BAG IVPB ONE (01:42)
[2018-05-31] MEDS ORDERED: ALBUTEROL SO4 2.5/IPRATROPIUM 0.5 INH SOL 3 ML VIAL.NEB. NEB PRN (02:32)
--- NOTE | 2018-05-31 02:49 | HP ---
CHIEF COMPLAINT:Nausea and vomiting PCP:Dr. Velasco HISTORY OF PRESENT ILLNESS: Patient is a 73 year old female with past medical history of COPD, anxiety, GERD , and Alzheimer's dementia, BIBEMS from [facility] due to 3 episodes of NBNB vomiting that started today. Patient is a poor historian, only oriented to person, but is otherwise awake and active. As per the daughter, she was called by MD about her mother who had 3 episodes vomiting today. Patient was then brought to the ED. Patient otherwise has no fever, chills, denies headache, dizziness, chest pain, SOB, palpitations, abdominal pain, urinary symptoms, weakness, numbness or tingling. Daughter also noted patient did not have bowel movements for a couple [facility] She reported patient was then given some stool softeners and subsequently had bowel movements. ER course was notable for: (1)WBC 16.3 (2)CT abdomen and pelvis: Consolidation/atelectasis in the left lung base, posteriorly suggestive pneumonia. Partially included focal opacity in the left upper lobe. Diverticulosis coli with mild stranding surrounding the distal descending colon at its junction with the proximal sigmoid colon suspicious for mild/early acute diverticulitis. (3)UA: 1+ASHWINI, trace ketones, 3+blood, 1+WBC, 46 WBC, 451 RBC Recent Travel:denies PAST MEDICAL HISTORY: COPD anxiety GERD Alzheimer's dementia PAST SURGICAL HISTORY: Bladder mesh placement Hysterectomy bilateral cataract surgery Social History: Smoking:previous smoker (quit >40 years ago) Alcohol:denies Drugs: denies Family History: Father - Alzheimer's disease Allergies No Known Drug Allergies Allergy (Verified 05/30/18 20:34) seasonal Allergy (Uncoded 05/30/18 20:34) HOME MEDICATIONS: Home Medications Medication Instructions Recorded Alprazolam 0.25 mg PO BID tablet 08/25/12 Cholecalciferol (Vitamin D3) 400 unit PO DAILY tablet 09/08/12 [Vitamin D3] Magnesium Oxide [Magnesium] 500 mg PO 2 Caps daily capsule 09/08/12 Multivitamin [Daily Vitamin] 1 each PO DAILY tablet 09/08/12 Pyridoxine HCl [Vitamin B-6] 200 mg PO 2 Tabs Daily tablet 09/08/12 Alprazolam 0.25 mg PO BID 08/13/14 Pantoprazole Sodium [Protonix] 40 mg PO DAILY 08/13/14 Montelukast Na [Singulair -] 10 mg PO HS 09/25/14 Guaifenesin [Expectorant] 200 mg PO QID PRN #30 tablet 05/31/15 Aspirin Coated [Ecotrin -] 81 mg PO DAILY #30 tablet.ec 04/30/18 Ciprofloxacin [Cipro -] 500 mg PO Q12H 3 Days #6 tablet 04/30/18 Ciprofloxacin [Cipro -] 500 mg PO Q12H #14 tablet 05/30/18 Metronidazole 500 mg PO TID #21 tablet 05/30/18 REVIEW OF SYSTEMS CONSTITUTIONAL: Absent: fever, chills, diaphoresis, generalized weakness, malaise, loss of appetite, weight change HEENT: Absent: rhinorrhea, nasal congestion, throat pain, throat swelling, difficulty swallowing, mouth swelling, ear pain, eye pain, visual changes CARDIOVASCULAR: Absent: chest pain, syncope, palpitations, irregular heart rate, lightheadedness , peripheral edema RESPIRATORY: Absent: cough, shortness of breath, dyspnea with exertion, orthopnea, wheezing, stridor, hemoptysis GASTROINTESTINAL:vomiting, constipation Absent: abdominal pain, abdominal distension, nausea, diarrhea, melena, hematochezia GENITOURINARY: Absent: dysuria, frequency, urgency, hesitancy, hematuria, flank pain, genital pain MUSCULOSKELETAL: Absent: myalgia, arthralgia, joint swelling, back pain, neck pain SKIN: Absent: rash, itching, pallor HEMATOLOGIC/IMMUNOLOGIC: Absent: easy bleeding, easy bruising, lymphadenopathy, frequent infections ENDOCRINE: Absent: unexplained weight gain, unexplained weight loss, heat intolerance, cold intolerance NEUROLOGIC: Absent: headache, focal weakness or paresthesias, dizziness, unsteady gait, seizure, mental status changes, bladder or bowel incontinence PSYCHIATRIC: Absent: anxiety, depression, suicidal or homicidal ideation, hallucinations. PHYSICAL EXAMINATION Vital Signs - 24 hr 05/30/18 05/31/18 20:13 02:25 Temperature 98.2 F 98.5 F Pulse Rate 69 Pulse Rate [ 79 Left Radial] Respiratory 18 18 Rate Blood Pressure 136/81 Blood Pressure 143/67 [Left Arm] O2 Sat by Pulse 96 99 Oximetry (%) GENERAL: Awake, alert, and oriented to person only, in no acute distress. HEAD: Normal with no signs of trauma. EYES: PERRLA, EOMI, sclera anicteric, conjunctiva clear. EARS, NOSE, THROAT: Ears normal, oropharynx clear without exudates. Dry mucous membranes. NECK: Normal range of motion, supple without lymphadenopathy, JVD, or masses. LUNGS: Breath sounds equal, clear to auscultation bilaterally. HEART: Regular rate and rhythm, normal S1 and S2 without murmur, rub or gallop. ABDOMEN: Soft, +mild suprapubic tenderness, not distended, normoactive bowel sounds, no guarding, no rebound. MUSCULOSKELETAL: Normal range of motion at all joints. No CVA tenderness. UPPER EXTREMITIES: 2+ pulses, warm, well-perfused. No peripheral edema. LOWER EXTREMITIES: 2+ pulses, warm, well-perfused. No peripheral edema. NEUROLOGICAL: AAOx1. Cranial nerves II-XII intact. Normal speech. Motor strength 5/5. Gait not observed. PSYCHIATRIC: Cooperative. Good eye contact. SKIN: Warm, dry, normal turgor, no rashes or lesions noted. Laboratory Results - last 24 hr 05/30/18 05/30/18 05/30/18 22:00 22:00 22:00 WBC 16.3 H RBC 4.89 Hgb 13.3 Hct 39.7 MCV 81.1 MCH 27.2 MCHC 33.6 RDW 14.7 Plt Count 443 H MPV 7.9 Absolute Neuts (auto) 15.0 H Neutrophils % 92.0 H D Neutrophils % (Manual) 90.0 H Band Neutrophils % 2.0 Lymphocytes % 5.6 L D Lymphocytes % (Manual) 4.0 L Monocytes % 2.1 L Monocytes % (Manual) 4 Eosinophils % 0.0 D Eosinophils % (Manual) 0.0 Basophils % 0.3 Basophils % (Manual) 0.0 Nucleated RBC % 0 Platelet Estimate Adequate PT with INR 12.20 INR 1.03 Sodium 139 Potassium 4.5 Chloride 105 Carbon Dioxide 27 Anion Gap 7 L BUN 21 H Creatinine 0.5 L Creat Clearance w eGFR > 60 Random Glucose 119 H Lactic Acid Calcium 9.2 Total Bilirubin 0.4 AST 21 ALT 24 Alkaline Phosphatase 143 H Troponin I < 0.02 B-Natriuretic Peptide 62.5 Total Protein 7.3 Albumin 3.5 Total Amylase 54 Lipase 168 Urine Color Urine Appearance Urine pH Ur Specific [place] Urine Protein Urine Glucose (UA) Urine Ketones Urine Blood Urine Nitrite Urine Bilirubin Urine Urobilinogen Ur Leukocyte Esterase Urine WBC (Auto) Urine RBC (Auto) Ur Epithelial Cells Urine Mucus 05/30/18 05/30/18 22:12 22:35 WBC RBC Hgb Hct MCV MCH MCHC RDW Plt Count MPV Absolute Neuts (auto) Neutrophils % Neutrophils % (Manual) Band Neutrophils % Lymphocytes % Lymphocytes % (Manual) Monocytes % Monocytes % (Manual) Eosinophils % Eosinophils % (Manual) Basophils % Basophils % (Manual) Nucleated RBC % Platelet Estimate PT with INR INR Sodium Potassium Chloride Carbon Dioxide Anion Gap BUN Creatinine Creat Clearance w eGFR Random Glucose Lactic Acid 1.2 Calcium Total Bilirubin AST ALT Alkaline Phosphatase Troponin I B-Natriuretic Peptide Total Protein Albumin Total Amylase Lipase Urine Color Yellow Urine Appearance Cloudy Urine pH 5.0 Ur Specific [place] 1.018 Urine Protein 1+ H Urine Glucose (UA) Negative Urine Ketones Trace H Urine Blood 3+ H Urine Nitrite Negative Urine Bilirubin Negative Urine Urobilinogen Negative Ur Leukocyte Esterase 1+ H Urine WBC (Auto) 46 Urine RBC (Auto) 451 Ur Epithelial Cells Rare Urine Mucus Moderate CT abdomen and pelvis: Consolidation/atelectasis in the left lung base, posteriorly suggestive pneumonia. Minimal atelectatic chages in the right lung base. Partially included focal opacity in the left upper lobe, posteriorly measuring 10mm that may represent focal infiltrate. 2.6x1.6cm focal low- attenuation density in the left hepatic lobe, anteriorly which is nonspecific. Small hiatus hernia. There is no evidence of small bowel obstruction. Nondistention of the proximal small bowel/jejunum loops. Nonvisualization of the appendix. Diverticulosis coli with mild stranding surrounding the distal descending colon at its junction with the proximal sigmoid colon suspicious for mild/early acute diverticulitis. No extraluminal air or abscess formation is identified. ASSESSMENT/PLAN: Patient is a 73 year old female with past medical history of COPD, anxiety, GERD , and Alzheimer's dementia, [facility] due to 3 episodes of NBNB vomiting that started today. #Leukocytosis: HCAP vs mild acute diverticulitis vs possible UTI -Lactic acid wnl -CT scan showed LLL and HERNAN consolidation, mild/early acute diverticulitis -CT also showed nonvisualization of appendix but no known history of appendectomy -UA: 46 wBC, 451 RBC -Vanc/Zosyn given at the ED. -Will continue Vancomycin 1gm q12h and Zosyn 3.375gm q8h -Duonebs PRN -ID (Dr. Pereira) consulted. #Painless hematuria -hx of bladder mesh placement, ?bladder mass (not found on CT) -Would repeat urinalysis once patient is more stable -Consult urology if hematuria persists #COPD -Continue advair 100/50 -Singulair 10mg PO HS #Dementia -Continue Mirtazapine 7.5mg Po HS -Xanax 0.25mg BID PRN for anxiety/agitation -Fall risk precautions -Dysphagia precautions #FEN -Not on any standing fluids -Electrolytes wnl, routine bmp monitoring -Sodium controlled diet #Prophylaxis -Heparin 5000units sq BID #Disposition -admit to med-surg Visit type - Emergency Visit Emergency Visit: Yes ED Registration Date: 05/31/18 Care time: The patient presented to the Emergency Department on the above date and was hospitalized for further evaluation of their emergent condition. - New Patient This patient is new to me today: Yes Date on this admission: 06/02/18 - Critical Care Critical Care patient: No
[2018-05-31] MEDS ORDERED: ALPRAZolam 0.25 MG TABLET PO PRN (02:54)
[2018-05-31] MEDS ORDERED: PATIENT'S OWN MEDICATION (NON-FORMULARY) (Magnesium Oxide [Magnesium] 500 MG) PO SCH (03:00)
[2018-05-31] MEDS ORDERED: PYRIDOXINE HCL 200 MG PO SCH (03:00)
[2018-05-31 06:40] LABS: BASO % 0.4 % (0-2.0); EOS % 0.5 % (0-4.5); HEMATOCRIT 35.4 % (32.4-45.2); HEMOGLOBIN 11.7 GM/dL (10.7-15.3); LYMPH % 28.1 % (8-40); MCH 26.9 pg (25.7-33.7); MCHC 33.1 g/dl (32.0-36.0); MEAN CELL VOLUME 81.1 fl (80-96); MEAN PLT VOLUME 8.1 fl (7.5-11.1); MONO % 8.7 % (3.8-10.2); NEUT % 62.3 % (42.8-82.8); PLATELET COUNT 401 K/MM3 (134-434); RBC 4.37 M/mm3 (3.60-5.2); RDW 14.6 % (11.6-15.6); WHITE BLOOD COUNT 10.9 K/mm3 (4.0-10.0)
[2018-05-31 07:19] LABS: ANION GAP 5 MMOL/L (8-16); BLOOD UREA NITROGEN 12 mg/dL (7-18); CALCIUM 8.5 mg/dL (8.5-10.1); CHLORIDE 107 mmol/L (98-107); CO2 27 mmol/L (21-32); CREATININE 0.4 mg/dL (0.55-1.3); GLUCOSE,RANDOM 87 mg/dL (74-106); MAGNESIUM 2.3 mg/dL (1.8-2.4); PHOSPHOROUS 2.4 mg/dL (2.5-4.9); POTASSIUM 3.7 mmol/L (3.5-5.1); SODIUM 139 mmol/L (136-145)
--- NOTE | 2018-05-31 08:13 | PN ---
Physical Exam: SUBJECTIVE: Patient seen and examined at bedside- patient is a poor historian however denies any problems; she denies that she is in any pain: OBJECTIVE: Vital Signs Period Temp Pulse Resp BP Sys/Parmar Pulse Ox Last 24 Hr 97.5 F-98.5 F 65-79 18-20 136-143/66-81 95-99 GENERAL: The patient is awake, oriented to self but not place or time and does not know why shes in the hospital. EYES: PEERLA; EOMI; no scleral icterus NECK: no JVD; no lymphadenopathy LUNGS: CTA B/L ; no rales, rhonchi or wheezing HEART: Regular rate and rhythm, S1, S2 without murmur, rub or gallop. ABDOMEN: Soft, slight suprapubic tenderness upon palption; +BS in all 4 quadrants; nondistended EXTREMITIES: 2+ pulses, warm, well-perfused, no edema. PSYCH: Normal mood, normal affect. SKIN: Warm, dry, normal turgor, no rashes or lesions noted Laboratory Results - last 24 hr 05/30/18 05/30/18 05/30/18 22:00 22:00 22:00 WBC 16.3 H RBC 4.89 Hgb 13.3 Hct 39.7 MCV 81.1 MCH 27.2 MCHC 33.6 RDW 14.7 Plt Count 443 H MPV 7.9 Absolute Neuts (auto) 15.0 H Neutrophils % 92.0 H D Neutrophils % (Manual) 90.0 H Band Neutrophils % 2.0 Lymphocytes % 5.6 L D Lymphocytes % (Manual) 4.0 L Monocytes % 2.1 L Monocytes % (Manual) 4 Eosinophils % 0.0 D Eosinophils % (Manual) 0.0 Basophils % 0.3 Basophils % (Manual) 0.0 Nucleated RBC % 0 Platelet Estimate Adequate PT with INR 12.20 INR 1.03 Sodium 139 Potassium 4.5 Chloride 105 Carbon Dioxide 27 Anion Gap 7 L BUN 21 H Creatinine 0.5 L Creat Clearance w eGFR > 60 Random Glucose 119 H Lactic Acid Calcium 9.2 Phosphorus Magnesium Total Bilirubin 0.4 AST 21 ALT 24 Alkaline Phosphatase 143 H Troponin I < 0.02 B-Natriuretic Peptide 62.5 Total Protein 7.3 Albumin 3.5 Total Amylase 54 Lipase 168 Urine Color Urine Appearance Urine pH Ur Specific [place] Urine Protein Urine Glucose (UA) Urine Ketones Urine Blood Urine Nitrite Urine Bilirubin Urine Urobilinogen Ur Leukocyte Esterase Urine WBC (Auto) Urine RBC (Auto) Ur Epithelial Cells Urine Mucus 05/30/18 05/30/18 05/31/18 22:12 22:35 06:20 WBC 10.9 H RBC 4.37 Hgb 11.7 Hct 35.4 MCV 81.1 MCH 26.9 MCHC 33.1 RDW 14.6 Plt Count 401 MPV 8.1 Absolute Neuts (auto) 6.8 Neutrophils % 62.3 D Neutrophils % (Manual) Band Neutrophils % Lymphocytes % 28.1 D Lymphocytes % (Manual) Monocytes % 8.7 D Monocytes % (Manual) Eosinophils % 0.5 D Eosinophils % (Manual) Basophils % 0.4 Basophils % (Manual) Nucleated RBC % 0 Platelet Estimate PT with INR INR Sodium Potassium Chloride Carbon Dioxide Anion Gap BUN Creatinine Creat Clearance w eGFR Random Glucose Lactic Acid 1.2 Calcium Phosphorus Magnesium Total Bilirubin AST ALT Alkaline Phosphatase Troponin I B-Natriuretic Peptide Total Protein Albumin Total Amylase Lipase Urine Color Yellow Urine Appearance Cloudy Urine pH 5.0 Ur Specific [place] 1.018 Urine Protein 1+ H Urine Glucose (UA) Negative Urine Ketones Trace H Urine Blood 3+ H Urine Nitrite Negative Urine Bilirubin Negative Urine Urobilinogen Negative Ur Leukocyte Esterase 1+ H Urine WBC (Auto) 46 Urine RBC (Auto) 451 Ur Epithelial Cells Rare Urine Mucus Moderate 05/31/18 06:20 WBC RBC Hgb Hct MCV MCH MCHC RDW Plt Count MPV Absolute Neuts (auto) Neutrophils % Neutrophils % (Manual) Band Neutrophils % Lymphocytes % Lymphocytes % (Manual) Monocytes % Monocytes % (Manual) Eosinophils % Eosinophils % (Manual) Basophils % Basophils % (Manual) Nucleated RBC % Platelet Estimate PT with INR INR Sodium 139 Potassium 3.7 Chloride 107 Carbon Dioxide 27 Anion Gap 5 L BUN 12 Creatinine 0.4 L Creat Clearance w eGFR > 60 Random Glucose 87 Lactic Acid Calcium 8.5 Phosphorus 2.4 L Magnesium 2.3 Total Bilirubin AST ALT Alkaline Phosphatase Troponin I B-Natriuretic Peptide Total Protein Albumin Total Amylase Lipase Urine Color Urine Appearance Urine pH Ur Specific [place] Urine Protein Urine Glucose (UA) Urine Ketones Urine Blood Urine Nitrite Urine Bilirubin Urine Urobilinogen Ur Leukocyte Esterase Urine WBC (Auto) Urine RBC (Auto) Ur Epithelial Cells Urine Mucus Active Medications Generic Name Dose Route Start Last Admin Trade Name Freq PRN Reason Stop Dose Admin Albuterol/Ipratropium 1 amp 05/31/18 02:32 Duoneb - NEB Q6H PRN Dyspnea Alprazolam 0.25 mg 05/31/18 02:54 Xanax - PO BID PRN ANXIETY Aspirin 81 mg 05/31/18 10:00 Ecotrin - PO DAILY [facility] Cholecalciferol 400 unit 05/31/18 10:00 Vitamin D3 - PO DAILY [facility] Heparin Sodium (Porcine) 5,000 unit 05/31/18 10:00 Heparin - SQ BID [facility] Piperacillin Sod/Tazobactam 50 mls @ 100 mls/hr 05/31/18 10:00 Sod 3.375 gm/ Dextrose IVPB Q8H-IV [facility] Protocol Montelukast Sodium 10 mg 05/31/18 22:00 Singulair - PO HS [facility] Multivitamins/Minerals/Vitamin C 1 tab 05/31/18 10:00 Tab-A-Vit - PO DAILY [facility] Non-Formulary Medication 500 mg 05/31/18 03:00 Magnesium Oxide [Magnesium] PO 2 Caps daily [facility] Non-Formulary Medication 7.5 mg 05/31/18 22:00 Mirtazapine [Mirtazapine] PO HS [facility] Non-Formulary Medication 200 mg 05/31/18 03:00 Pyridoxine Hcl [Vitamin B-6] PO 2 Tabs Daily [facility] Pantoprazole Sodium 40 mg 05/31/18 10:00 Protonix - PO DAILY [facility] Fluticasone/Salmeterol 1 puff 05/31/18 10:00 Advair 100mcg/50mcg - IH BID [facility] Vancomycin HCl 1,000 mg 05/31/18 13:00 Vancomycin (Pre-Docked) IVPB BID [facility] Protocol ASSESSMENT/PLAN: Patient is a 73 year old female with past medical history of COPD, anxiety, GERD , and Alzheimer's dementia, [facility]S [facility] due to 3 episodes of NBNB vomiting that started today. #Leukocytosis: HCAP vs mild acute diverticulitis vs possible UTI -Leukocytosis downtrending this AM to 10.9 from 16.3 -CT scan showed LLL and HERNAN consolidation, mild/early acute diverticulitis -UA: 46 wBC, 451 RBC -starting ceftriaxone and flagyl today for diverticulitis -Duonebs PRN -ID (Dr. Pereira) consulted. #Painless hematuria -hx of bladder mesh placement, ?bladder mass (not found on CT) -Would repeat urinalysis once patient is more stable -Consult urology if hematuria persists #COPD -Continue advair 100/50 -Singulair 10mg PO HS #Dementia -Continue Mirtazapine 7.5mg Po HS -Xanax 0.25mg BID PRN for anxiety/agitation -Fall risk precautions -Dysphagia precautions #FEN -Not on any standing fluids -Electrolytes wnl, routine bmp monitoring -Sodium controlled diet Problem List - Problems (1) Diverticulitis large intestine Code(s): K57.32 - DVTRCLI OF LG INT W/O PERFORATION OR ABSCESS W/O BLEEDING Qualifiers: Diverticulitis bleeding: without bleeding Diverticulitis complication: unspecified complication status Qualified Code(s): K57.32 - Diverticulitis of large intestine without perforation or abscess without bleeding (2) Dementia Code(s): F03.90 - UNSPECIFIED DEMENTIA WITHOUT BEHAVIORAL DISTURBANCE Qualifiers: Dementia type: unspecified type Dementia behavioral disturbance: without behavioral disturbance Qualified Code(s): F03.90 - Unspecified dementia without behavioral disturbance (3) Fever Code(s): R50.9 - FEVER, UNSPECIFIED Qualifiers: Fever type: due to other condition Qualified Code(s): R50.81 - Fever presenting with conditions classified elsewhere (4) Loose stools Code(s): R19.5 - OTHER FECAL ABNORMALITIES Visit type - Emergency Visit Emergency Visit: Yes ED Registration Date: 05/31/18 Care time: The patient presented to the Emergency Department on the above date and was hospitalized for further evaluation of their emergent condition. - New Patient This patient is new to me today: Yes Date on this admission: 05/31/18 - Critical Care Critical Care patient: No
[2018-05-31] MEDS ORDERED: PIPERACILLIN/TAZOBACTAM 3.375 GM VIAL IVPB ONE (09:24)
[2018-05-31] MEDS ORDERED: DEXTROSE 5%-WATER - 50 ML IVPB ONE ×2 (09:24→14:53)
[2018-05-31] MEDS: CHOLECALCIFEROL (VITAMIN D3) 400 UNIT TABLET (FP) PO SCH (09:27)
[2018-05-31] MEDS: MULTIVITAMINS (DAILY MVI) TABLET (FP) PO SCH (09:27)
[2018-05-31] MEDS: ASPIRIN COATED 81 MG TABLET.EC PO SCH (09:27)
[2018-05-31] MEDS: PANTOPRAZOLE 40 MG TABLET (FP) PO SCH (09:27)
[2018-05-31] MEDS ORDERED: HEPARIN NA (PORCINE) 5,000 UNITS/ML 1ML VIAL SQ SCH (10:00)
[2018-05-31] MEDS ORDERED: PIPERACILLIN/TAZOB 3.375 GM 3.375 GM in DEXTROSE 5%-WATER - 50 ML IVPB SCH (10:00)
[2018-05-31] MEDS ORDERED: metroNIDAZOLE 250 MG TABLET PO SCH (10:00)
--- NOTE | 2018-05-31 11:59 | PN ---
Progress Note (short form) - Note Progress Note: ID consult dictated imp/reccd 73 yo female admitted from [facility] with vomiting-3 times at the facility she has dementia unable to give any meaningful history but denies chest or abdominal pain resting comfortably pe notable for LLQ pain on palpation noted to have wbc of 16.3 ct scan with LLL infiltrate and mild diverticulitis received vanco zosyn in ED diverticulitis pneumonia agree with rocephin/flagyl would keep flagyl iv for now (better tolerated) until she is eating regular diet Problem List - Problems (1) Diverticulitis large intestine Code(s): K57.32 - DVTRCLI OF LG INT W/O PERFORATION OR ABSCESS W/O BLEEDING Qualifiers: Diverticulitis bleeding: without bleeding Diverticulitis complication: unspecified complication status Qualified Code(s): K57.32 - Diverticulitis of large intestine without perforation or abscess without bleeding (2) Pneumonia Code(s): J18.9 - PNEUMONIA, UNSPECIFIED ORGANISM
--- NOTE | 2018-05-31 12:35 | EKG ---
Test Reason : Blood Pressure : / mmHG Vent. Rate : 072 BPM Atrial Rate : 072 BPM P-R Int : 132 ms QRS Dur : 094 ms QT Int : 418 ms P-R-T Axes : -09 -06 040 degrees QTc Int : 457 ms POOR DATA QUALITY, INTERPRETATION MAY BE ADVERSELY AFFECTED SINUS RHYTHM WITH PREMATURE ATRIAL COMPLEXES OTHERWISE NORMAL ECG WHEN COMPARED WITH ECG OF 25-APR-2018 21:58, PREMATURE ATRIAL COMPLEXES ARE NOW PRESENT Confirmed by JOHNATHAN FISHER, SONNY ([id number]) on 05/31/2018 12:35:23 PM Referred By: Confirmed By:SONNY MANN MD
[2018-05-31] MEDS ORDERED: VANCOMYCIN 1 GM in D5W (PRE-DOCKED) 1,000 MG/250 ML IVPB SCH (13:00)
[2018-05-31] MEDS ORDERED: cefTRIAXone SODIUM 1 GM VIAL ONE (14:53)
[2018-05-31] MEDS: CEFTRIAXONE 1 GM in DEXTROSE 5%-WATER - 50 ML IVPB SCH (14:56)
[2018-05-31] MEDS: HEPARIN NA (PORCINE) 5,000 UNITS/ML 1ML VIAL SQ SCH ×3 (14:56→21:48)
--- NOTE | 2018-05-31 15:04 | PN ---
Teaching Attending Note Name of Resident: Gwendolyn Dior ATTENDING PHYSICIAN STATEMENT I saw and evaluated the patient. I reviewed the resident's note and discussed the case with the resident. I agree with the resident's findings and plan as documented. SUBJECTIVE: No fever or chills. No MARAVILLA , no N/V. limited hx due to dementia but denies any complains OBJECTIVE: NAD , pleasant and wake, does not know her age, location or reason for admission CV: RRR Lung: CTAB Abd: soft, ND, TTP in LLQ, no rebound tenderness or guarding Ext : no edema or erythema ASSESSMENT AND PLAN: 73 y/o lady with h/o dementia, COPD, anxiety, bladder mesh, CVA, GERD, hysterectomy, and b/l cataract sx who presented form [facility] facility due to N/V. She was found evidence of diverticulitis on CT scan 1- Acute L sided diverticulitis. - Ceftriaxone and flagyl - stool cx if diarrhea - change diet to clears for now 2- L sided infiltrates on CT, possible aspiration while vomiting. no clinical signs of PNA, but if she does have PNA ( Aspiration or CAP), she is covered with current Abx . cxray reviewed. 3- Pyuria: can't tell if she has urinary sx due to her dementia and being poor historian, but she is treated for a UTI any way with Ceftriaxone. - follow urine cx 4- h/o dementia and anxiey : cont remeron , and xanax. DVT px : heparin sq
[2018-05-31] MEDS ORDERED: PT OWN MED DRAWER 7, Y5N ONE (15:07)
[2018-05-31] MEDS: FLUTICASONE/SALMETEROL 100 MCG/50 MCG DISKUS IH SCH ×2 (15:09→21:49)
[2018-05-31] MEDS: OLANZapine 2.5 MG TABLET PO SCH (21:48)
[2018-05-31] MEDS: MONTELUKAST NA 10 MG TABLET PO SCH (21:48)
[2018-05-31] MEDS: MIRTAZAPINE 15 MG TABLET (FP) PO SCH (21:48)
[2018-06-01] MEDS: HEPARIN NA (PORCINE) 5,000 UNITS/ML 1ML VIAL SQ SCH ×3 (06:09→22:33)
[2018-06-01] MEDS: LEVOTHYROXINE NA 25 MCG TABLET (FP) PO SCH (06:09)
[2018-06-01] MEDS ORDERED: PT OWN MED DRAWER 7, Y5N ONE ×2 (06:25→09:08)
[2018-06-01 07:21] LABS: HEMATOCRIT 33.4 % (32.4-45.2); HEMOGLOBIN 11.4 GM/dL (10.7-15.3); MCH 27.4 pg (25.7-33.7); MCHC 34.1 g/dl (32.0-36.0); MEAN CELL VOLUME 80.3 fl (80-96); MEAN PLT VOLUME 8.1 fl (7.5-11.1); PLATELET COUNT 389 K/MM3 (134-434); RBC 4.15 M/mm3 (3.60-5.2); RDW 14.4 % (11.6-15.6); WHITE BLOOD COUNT 5.2 K/mm3 (4.0-10.0)
[2018-06-01 07:53] LABS: ANION GAP 7 MMOL/L (8-16); BLOOD UREA NITROGEN 17 mg/dL (7-18); CALCIUM 8.4 mg/dL (8.5-10.1); CHLORIDE 111 mmol/L (98-107); CO2 26 mmol/L (21-32); CREATININE 0.5 mg/dL (0.55-1.3); GLUCOSE,RANDOM 85 mg/dL (74-106); MAGNESIUM 2.5 mg/dL (1.8-2.4); PHOSPHOROUS 3.2 mg/dL (2.5-4.9); POTASSIUM 3.7 mmol/L (3.5-5.1); SODIUM 145 mmol/L (136-145)
--- NOTE | 2018-06-01 08:04 | PN ---
Physical Exam: SUBJECTIVE: Patient seen and examined at bedside- no acute events overnight; patient states she is feeling better- denies any pain OBJECTIVE: Vital Signs Period Temp Pulse Resp BP Sys/Parmar Pulse Ox Last 24 Hr 97.5 F-98.6 F 60-88 18-20 111-130/56-78 95-95 GENERAL: The patient is awake, alert, and fully oriented, in no acute distress. EYES: PEERLA EOMI no scleral icterus NECK: no JVD; no lymphadenopathy LUNGS: CTA B/L; no rales, rhonchi or wheezing HEART: Regular rate and rhythm, S1, S2 without murmur, rub or gallop. ABDOMEN: Soft, nontender, nondistended, normoactive bowel sounds, no guarding, no rebound, no hepatosplenomegaly, no masses. EXTREMITIES: 2+ pulses, warm, well-perfused, no edema. PSYCH: Normal mood, normal affect. SKIN: Warm, dry, normal turgor, no rashes or lesions noted Laboratory Results - last 24 hr 06/01/18 06:30 Sodium 145 Potassium 3.7 Chloride 111 H Carbon Dioxide 26 Anion Gap 7 L BUN 17 Creatinine 0.5 L Creat Clearance w eGFR > 60 Random Glucose 85 Calcium 8.4 L Phosphorus 3.2 Magnesium 2.5 H Active Medications Generic Name Dose Route Start Last Admin Trade Name Freq PRN Reason Stop Dose Admin Albuterol/Ipratropium 1 amp 05/31/18 02:32 Duoneb - NEB Q6H PRN Dyspnea Alprazolam 0.25 mg 05/31/18 02:54 Xanax - PO BID PRN ANXIETY Aspirin 81 mg 05/31/18 10:00 05/31/18 09:27 Ecotrin - PO 81 mg DAILY [facility] Administration Cholecalciferol 400 unit 05/31/18 10:00 05/31/18 09:27 Vitamin D3 - PO 400 unit DAILY [facility] Administration Heparin Sodium (Porcine) 5,000 unit 05/31/18 14:00 06/01/18 06:09 Heparin - SQ 5,000 unit TID [facility] Administration Ceftriaxone Sodium 1 gm/ 50 mls @ 100 mls/hr 05/31/18 15:30 05/31/18 14:56 Dextrose IVPB 100 mls/hr DAILY [facility] Administration Metronidazole 500 mg in 100 mls @ 100 mls/hr 05/31/18 18:00 03/07/19 02:11 Flagyl 500mg Premixed Ivpb - IVPB 100 mls/hr Q8H-IV [facility] Administration Levothyroxine Sodium 25 mcg 06/01/18 07:00 06/01/18 06:09 Synthroid - PO 25 mcg AM [facility] Administration Mirtazapine 7.5 mg 05/31/18 22:00 05/31/18 21:48 Remeron - PO 7.5 mg HS [facility] Administration Montelukast Sodium 10 mg 05/31/18 22:00 05/31/18 21:48 Singulair - PO 10 mg HS [facility] Administration Multivitamins/Minerals/Vitamin C 1 tab 05/31/18 10:00 05/31/18 09:27 Tab-A-Vit - PO 1 tab DAILY [facility] Administration Olanzapine 2.5 mg 05/31/18 22:00 05/31/18 21:48 Zyprexa - PO 2.5 mg HS [facility] Administration Pantoprazole Sodium 40 mg 05/31/18 10:00 05/31/18 09:27 Protonix - PO 40 mg DAILY [facility] Administration Fluticasone/Salmeterol 1 puff 05/31/18 10:00 05/31/18 21:49 Advair 100mcg/50mcg - IH 1 puff BID [facility] Administration ASSESSMENT/PLAN: Patient is a 73 year old female with past medical history of COPD, anxiety, GERD , and Alzheimer's dementia, BIBEMS from [facility] facility due to 3 episodes of NBNB vomiting that started today. #Leukocytosis: HCAP vs mild acute diverticulitis vs possible UTI -Leukocytosis resolved -CT scan showed LLL and HERNAN consolidation, mild/early acute diverticulitis - ceftriaxone and flagyl today for diverticulitis day 2; will switch to orals tomorrow -Duonebs PRN -ID (Dr. Pereira) consulted. #Painless hematuria -hx of bladder mesh placement, ?bladder mass (not found on CT) -Would repeat urinalysis once patient is more stable -Consult urology if hematuria persists #COPD -Continue advair 100/50 -Singulair 10mg PO HS #Dementia -Continue Mirtazapine 7.5mg Po HS -Xanax 0.25mg BID PRN for anxiety/agitation -Fall risk precautions -Dysphagia precautions #FEN -Not on any standing fluids -Electrolytes wnl, routine bmp monitoring -full liquid diet Problem List - Problems (1) Diverticulitis large intestine Code(s): K57.32 - DVTRCLI OF LG INT W/O PERFORATION OR ABSCESS W/O BLEEDING Qualifiers: Diverticulitis bleeding: without bleeding Diverticulitis complication: unspecified complication status Qualified Code(s): K57.32 - Diverticulitis of large intestine without perforation or abscess without bleeding (2) Dementia Code(s): F03.90 - UNSPECIFIED DEMENTIA WITHOUT BEHAVIORAL DISTURBANCE Qualifiers: Dementia type: unspecified type Dementia behavioral disturbance: without behavioral disturbance Qualified Code(s): F03.90 - Unspecified dementia without behavioral disturbance (3) Fever Code(s): R50.9 - FEVER, UNSPECIFIED Qualifiers: Fever type: due to other condition Qualified Code(s): R50.81 - Fever presenting with conditions classified elsewhere (4) Loose stools Code(s): R19.5 - OTHER FECAL ABNORMALITIES Visit type - Emergency Visit Emergency Visit: Yes ED Registration Date: 05/31/18 Care time: The patient presented to the Emergency Department on the above date and was hospitalized for further evaluation of their emergent condition. - New Patient This patient is new to me today: No - Critical Care Critical Care patient: No
[2018-06-01] MEDS ORDERED: DEXTROSE 5%-WATER - 50 ML IVPB ONE (09:08)
[2018-06-01] MEDS ORDERED: cefTRIAXone SODIUM 1 GM VIAL ONE (09:08)
[2018-06-01] MEDS: MULTIVITAMINS (DAILY MVI) TABLET (FP) PO SCH (09:10)
[2018-06-01] MEDS: PANTOPRAZOLE 40 MG TABLET (FP) PO SCH (09:10)
[2018-06-01] MEDS: ASPIRIN COATED 81 MG TABLET.EC PO SCH (09:10)
[2018-06-01] MEDS: CEFTRIAXONE 1 GM in DEXTROSE 5%-WATER - 50 ML IVPB SCH (09:11)
[2018-06-01] MEDS: FLUTICASONE/SALMETEROL 100 MCG/50 MCG DISKUS IH SCH ×2 (09:11→22:34)
[2018-06-01] MEDS: CHOLECALCIFEROL (VITAMIN D3) 400 UNIT TABLET (FP) PO SCH (09:11)
[2018-06-01 14:01] VITALS: BMI 21.9
--- NOTE | 2018-06-01 14:38 | PN ---
Teaching Attending Note Name of Resident: Gwendolyn Dior ATTENDING PHYSICIAN STATEMENT I saw and evaluated the patient. I reviewed the resident's note and discussed the case with the resident. I agree with the resident's findings and plan as documented. SUBJECTIVE: no fever or chills, no abd pain, no MARAVILLA , no diarrhea, no events over night . OBJECTIVE: NAD , pleasant and cooperative CV: RRR Lung: CTAB Abd: soft, ND, TTP in LLQ, no rebound tenderness or guarding Ext: no edema or erythema ASSESSMENT AND PLAN: 73 y/o lady with h/o dementia, COPD, anxiety, bladder mesh, CVA, GERD, hysterectomy, and b/l cataract sx who presented form AL facility due to N/V. She was found evidence of diverticulitis on CT scan 1- Acute L sided diverticulitis. - cont Ceftriaxone and flagyl day 2 . - advance diet to full liquids - stool cx if diarrhea 2- L sided infiltrates on CT, possible aspiration while vomiting. no clinical signs of PNA, but if she does have PNA ( Aspiration or CAP), she is covered with current Abx . 3- Asymptomatic pyuria . urine cx done before abx is neg . No UTI 4- h/o dementia and anxiey : cont remeron , and xanax. DVT px : heparin sq
[2018-06-01] MEDS: SODIUM CHLORIDE 1,000 ML IV SCH ×2 (14:43→15:15)
--- NOTE | 2018-06-01 16:16 | PN ---
Progress Note (short form) - Note Progress Note: reports no complaints Vital Signs Period Temp Pulse Resp BP Sys/Parmar Pulse Ox Last 24 Hr 97.5 F-98.5 F 60-88 19-26 107-134/55-81 95-96 cor-rrr lungs clear abd soft,mild LLQ pain on palpation ext no edema CBC, BMP 06/01/18 06:30 06/01/18 06:30 Microbiology 05/30/18 22:35 Urine - Urine Clean Catch Urine Culture - Final NO GROWTH OBTAINED a/p diverticulitis pneumonia? agree with rocephin/flagyl would keep flagyl iv for now (better tolerated) until she is eating regular diet clinically improving advance diet consider change to po antibiotics in am -levaquin 250 mg daily/[id number] tid for one week
[2018-06-01] MEDS: MONTELUKAST NA 10 MG TABLET PO SCH (22:33)
[2018-06-01] MEDS: MIRTAZAPINE 15 MG TABLET (FP) PO SCH (22:33)
[2018-06-01] MEDS: OLANZapine 2.5 MG TABLET PO SCH (22:33)
[2018-06-02] MEDS: HEPARIN NA (PORCINE) 5,000 UNITS/ML 1ML VIAL SQ SCH ×2 (06:17→14:00)
[2018-06-02] MEDS: LEVOTHYROXINE NA 25 MCG TABLET (FP) PO SCH (06:17)
[2018-06-02 07:08] LABS: HEMOGLOBIN 11.7 GM/dL (10.7-15.3); MCH 28.1 pg (25.7-33.7); MCHC 34.5 g/dl (32.0-36.0); MEAN CELL VOLUME 81.6 fl (80-96); MEAN PLT VOLUME 8.7 fl (7.5-11.1); PLATELET COUNT 387 K/MM3 (134-434); RBC 4.17 M/mm3 (3.60-5.2); RDW 14.5 % (11.6-15.6); WHITE BLOOD COUNT 4.9 K/mm3 (4.0-10.0)
[2018-06-02 08:09] LABS: ANION GAP 8 MMOL/L (8-16); BLOOD UREA NITROGEN 12 mg/dL (7-18); CHLORIDE 111 mmol/L (98-107); CO2 26 mmol/L (21-32); CREATININE 0.4 mg/dL (0.55-1.3); GLUCOSE,RANDOM 84 mg/dL (74-106); MAGNESIUM 2.4 mg/dL (1.8-2.4); PHOSPHOROUS 3.2 mg/dL (2.5-4.9); POTASSIUM 3.9 mmol/L (3.5-5.1); SODIUM 145 mmol/L (136-145)
--- NOTE | 2018-06-02 09:13 | PN ---
Physical Exam: SUBJECTIVE: Patient seen and examined OBJECTIVE: Vital Signs Period Temp Pulse Resp BP Sys/Parmar Pulse Ox Last 24 Hr 97.9 F-98.3 F 66-76 17-26 107-128/55-71 95-96 GENERAL: The patient is awake, alert, and fully oriented, in no acute distress. HEAD: Normal with no signs of trauma. EYES: PERRL, extraocular movements intact, sclera anicteric, conjunctiva clear. No ptosis. ENT: Ears normal, nares patent, oropharynx clear without exudates, moist mucous membranes. NECK: Trachea midline, full range of motion, supple. LUNGS: Breath sounds equal, clear to auscultation bilaterally, no wheezes, no crackles, no accessory muscle use. HEART: Regular rate and rhythm, S1, S2 without murmur, rub or gallop. ABDOMEN: Soft, nontender, nondistended, normoactive bowel sounds, no guarding, no rebound, no hepatosplenomegaly, no masses. EXTREMITIES: 2+ pulses, warm, well-perfused, no edema. NEUROLOGICAL: Cranial nerves II through XII grossly intact. Normal speech, gait not observed. PSYCH: Normal mood, normal affect. SKIN: Warm, dry, normal turgor, no rashes or lesions noted Laboratory Results - last 24 hr 06/02/18 06/02/18 06:10 06:10 WBC 4.9 RBC 4.17 Hgb 11.7 Hct 34.0 MCV 81.6 MCH 28.1 MCHC 34.5 RDW 14.5 Plt Count 387 MPV 8.7 Sodium 145 Potassium 3.9 Chloride 111 H Carbon Dioxide 26 Anion Gap 8 BUN 12 Creatinine 0.4 L Creat Clearance w eGFR > 60 Random Glucose 84 Calcium 8.0 L Phosphorus 3.2 Magnesium 2.4 Active Medications Generic Name Dose Route Start Last Admin Trade Name Freq PRN Reason Stop Dose Admin Albuterol/Ipratropium 1 amp 05/31/18 02:32 Duoneb - NEB Q6H PRN Dyspnea Alprazolam 0.25 mg 05/31/18 02:54 Xanax - PO BID PRN ANXIETY Aspirin 81 mg 05/31/18 10:00 06/01/18 09:10 Ecotrin - PO 81 mg DAILY [facility] Administration Cholecalciferol 400 unit 05/31/18 10:00 06/01/18 09:11 Vitamin D3 - PO 400 unit DAILY [facility] Administration Heparin Sodium (Porcine) 5,000 unit 05/31/18 14:00 06/02/18 06:17 Heparin - SQ 5,000 unit TID [facility] Administration Ceftriaxone Sodium 1 gm/ 50 mls @ 100 mls/hr 05/31/18 15:30 06/01/18 09:11 Dextrose IVPB 100 mls/hr DAILY [facility] Administration Metronidazole 500 mg in 100 mls @ 100 mls/hr 05/31/18 18:00 06/02/18 02:18 Flagyl 500mg Premixed Ivpb - IVPB 100 mls/hr Q8H-IV [facility] Administration Levothyroxine Sodium 25 mcg 06/01/18 07:00 06/02/18 06:17 Synthroid - PO 25 mcg AM [facility] Administration Mirtazapine 7.5 mg 05/31/18 22:00 06/01/18 22:33 Remeron - PO 7.5 mg HS [facility] Administration Montelukast Sodium 10 mg 05/31/18 22:00 06/01/18 22:33 Singulair - PO 10 mg HS [facility] Administration Multivitamins/Minerals/Vitamin C 1 tab 05/31/18 10:00 06/01/18 09:10 Tab-A-Vit - PO 1 tab DAILY [facility] Administration Olanzapine 2.5 mg 05/31/18 22:00 06/01/18 22:33 Zyprexa - PO 2.5 mg HS [facility] Administration Pantoprazole Sodium 40 mg 05/31/18 10:00 06/01/18 09:10 Protonix - PO 40 mg DAILY [facility] Administration Fluticasone/Salmeterol 1 puff 05/31/18 10:00 06/01/18 22:34 Advair 100mcg/50mcg - IH 1 puff BID [facility] Administration ASSESSMENT/PLAN: Patient is a 73 year old female with past medical history of COPD, anxiety, GERD , and Alzheimer's dementia, BIBEMS from [facility] due to 3 episodes of NBNB vomiting that started today. #Leukocytosis: HCAP vs mild acute diverticulitis vs possible UTI -Leukocytosis resolved -CT scan showed LLL and HERNAN consolidation, mild/early acute diverticulitis - ceftriaxone and flagyl today for diverticulitis day 2; will switch to orals tomorrow -Duonebs PRN -ID (Dr. Pereira) consulted. #Painless hematuria -hx of bladder mesh placement, ?bladder mass (not found on CT) -Would repeat urinalysis once patient is more stable -Consult urology if hematuria persists #COPD -Continue advair 100/50 -Singulair 10mg PO HS #Dementia -Continue Mirtazapine 7.5mg Po HS -Xanax 0.25mg BID PRN for anxiety/agitation -Fall risk precautions -Dysphagia precautions #FEN -Not on any standing fluids -Electrolytes wnl, routine bmp monitoring -full liquid diet Problem List - Problems (1) Diverticulitis large intestine Code(s): K57.32 - DVTRCLI OF LG INT W/O PERFORATION OR ABSCESS W/O BLEEDING Qualifiers: Diverticulitis bleeding: without bleeding Diverticulitis complication: unspecified complication status Qualified Code(s): K57.32 - Diverticulitis of large intestine without perforation or abscess without bleeding (2) Dementia Code(s): F03.90 - UNSPECIFIED DEMENTIA WITHOUT BEHAVIORAL DISTURBANCE Qualifiers: Dementia type: unspecified type Dementia behavioral disturbance: without behavioral disturbance Qualified Code(s): F03.90 - Unspecified dementia without behavioral disturbance (3) Fever Code(s): R50.9 - FEVER, UNSPECIFIED Qualifiers: Fever type: due to other condition Qualified Code(s): R50.81 - Fever presenting with conditions classified elsewhere (4) Loose stools Code(s): R19.5 - OTHER FECAL ABNORMALITIES
[2018-06-02] MEDS ORDERED: DEXTROSE 5%-WATER - 50 ML IVPB ONE (09:42)
[2018-06-02] MEDS ORDERED: cefTRIAXone SODIUM 1 GM VIAL ONE (09:42)
[2018-06-02] MEDS: CEFTRIAXONE 1 GM in DEXTROSE 5%-WATER - 50 ML IVPB SCH (09:45)
[2018-06-02] MEDS: ASPIRIN COATED 81 MG TABLET.EC PO SCH (09:47)
[2018-06-02] MEDS: MULTIVITAMINS (DAILY MVI) TABLET (FP) PO SCH (09:47)
[2018-06-02] MEDS: PANTOPRAZOLE 40 MG TABLET (FP) PO SCH (09:47)
[2018-06-02] MEDS: FLUTICASONE/SALMETEROL 100 MCG/50 MCG DISKUS IH SCH (09:48)
[2018-06-02] MEDS: CHOLECALCIFEROL (VITAMIN D3) 400 UNIT TABLET (FP) PO SCH (09:48)
--- NOTE | 2018-06-02 15:09 | DS ---
Physical Exam: SUBJECTIVE: Patient seen and examined at bedside- no acute events overnight; patient denies being in any pain OBJECTIVE: Vital Signs Period Temp Pulse Resp BP Sys/Parmar Pulse Ox Last 24 Hr 97.5 F-98.5 F 66-82 17-20 107-145/59-71 95 PHYSICAL EXAM GENERAL: The patient is awake, alert to self not time or place (patients baseline).. EYES: PEERLA; EOMI; no scleral icterus NECK: no JVD no lymphadenopathy LUNGS: CTA B/L; no rales, rhonchi or wheezing. HEART: Regular rate and rhythm, S1, S2 without murmur, rub or gallop. ABDOMEN: Soft, slight LLQ tenderness upon palpaiton but improved; + BS. EXTREMITIES: 2+ pulses, warm, well-perfused, no edema. d. PSYCH: Normal mood, normal affect. SKIN: Warm, dry, normal turgor, no rashes or lesions noted. LABS Laboratory Results - last 24 hr 06/02/18 06/02/18 06:10 06:10 WBC 4.9 RBC 4.17 Hgb 11.7 Hct 34.0 MCV 81.6 MCH 28.1 MCHC 34.5 RDW 14.5 Plt Count 387 MPV 8.7 Sodium 145 Potassium 3.9 Chloride 111 H Carbon Dioxide 26 Anion Gap 8 BUN 12 Creatinine 0.4 L Creat Clearance w eGFR > 60 Random Glucose 84 Calcium 8.0 L Phosphorus 3.2 Magnesium 2.4 Imaging: ab/pelvis CT: Consolidation/atelectasis in the left lung base, posteriorly suggestive of pneumonia. Minimal atelectatic changes in the right lung base. Partially included focal opacity in the left upper lobe , posteriorly measuring 10 mm that may represent focal infiltrate. Follow-up CT scan of the chest in 2-3 weeks is recommended for further evaluation. 2.6 x 1.6 cm focal low-attenuation density in the left hepatic lobe, anteriorly which is nonspecific. Differential diagnosis includes a cavernous hemangioma. Correlation with liver ultrasound is needed. Small hiatus hernia pain There is no evidence of small bowel obstruction. Nondistention of the proximal small bowel/jejunum loops. Cannot rule out wall thickening or enteritis. Nonvisualization of the appendix. Diverticulosis coli with mild stranding surrounding the distal descending colon at its junction with the proximal sigmoid colon suspicious for mild/early acute diverticulitis. No extraluminal air or abscess formation is identified. HOSPITAL COURSE: Date of Admission:05/31/18 73 yo female with PMH of COPD, anxiety, alzheimers dementia, GERD presented to the ED from [address] [place] [address] after having multiple episodes of vomiting. review of systems limited given that patient has advanced alzheimers and denied any pain. on arrival patient had an elevated WBC count, in addition she had a positive UA with 46 [address] scan results noted above. patient was orignally started on cipro however was switched to ceftriaxone and flagyl to treat the diverticultiis and possible PNA. she was started on first clear liquid diet then advanced since she had no more episodes of vomiting ordiarrhea while in the hospital and her WBC downtrended. she was stabel to be sent home on oral meds- she was sent home on levaquin 250daily for 1 week with flagyl 500TID for 1 week. she was given a GI referral and also told to follow up with her PCP within one week Date of Discharge: 06/02/18 Minutes to complete discharge: 39 Discharge Summary Reason For Visit: UTI, PNEUMONIA Condition: Improved - Instructions Diet, Activity, Other Instructions: You came to the hospital after having multiple episodes of vomiting at home and were found to have diverticulitis, for which we have been treating you with antibiotics. Please resume all of your home medications in addition: Please take the antibiotic Levaquin 250mg daily for 7 days starting tomorrow Please take the antibiotic Flagyl 500mg three times a day for 7 days starting tomorrow Please follow up with your primary care physician, Dr. Velasco, within one week When your arrived to the ER, a sample of your urine was tested which showed blood. please have this repeated in one week to evaluate if blood is still present. *if you begin to experience any chest pains, shortness of breath, vomiting please return to the emergency room immediately Referrals: Arlene Matthews DO [Staff Physician] - 3 Weeks Steven Velasco [Non Staff, Medical] - 1 Week Disposition: [facility] - Home Medications Comprehensive Discharge Medication List: Ambulatory Orders Cholecalciferol (Vitamin D3) [Vitamin D3] 400 unit PO DAILY tablet 09/08/12 Magnesium Oxide [Magnesium] 500 mg PO 2 Caps daily capsule 09/08/12 Multivitamin [Daily Vitamin] 1 each PO DAILY tablet 09/08/12 Pyridoxine HCl [Vitamin B-6] 200 mg PO 2 Tabs Daily tablet 09/08/12 Pantoprazole Sodium [Protonix] 40 mg PO DAILY 08/13/14 Montelukast Na [Singulair -] 10 mg PO HS 09/25/14 Guaifenesin [Expectorant] 200 mg PO QID PRN #30 tablet 05/31/15 Aspirin Coated [Ecotrin -] 81 mg PO DAILY #30 tablet.ec 04/30/18 Alprazolam [Xanax] 0.25 mg PO BID PRN 05/31/18 Donepezil HCl [Aricept] 10 mg PO 05/31/18 Levothyroxine [Synthroid -] 25 mcg PO DAILY 05/31/18 Olanzapine [Zyprexa -] 2.5 mg PO HS 05/31/18 Levofloxacin [Levaquin] 250 mg PO DAILY #7 tablet 06/02/18 metroNIDAZOLE [Flagyl -] 500 mg PO TID #21 tablet 06/02/18 Problem List - Problems (1) Diverticulitis large intestine Code(s): K57.32 - DVTRCLI OF LG INT W/O PERFORATION OR ABSCESS W/O BLEEDING Qualifiers: Diverticulitis bleeding: without bleeding Diverticulitis complication: unspecified complication status Qualified Code(s): K57.32 - Diverticulitis of large intestine without perforation or abscess without bleeding (2) Dementia Code(s): F03.90 - UNSPECIFIED DEMENTIA WITHOUT BEHAVIORAL DISTURBANCE Qualifiers: Dementia type: unspecified type Dementia behavioral disturbance: without behavioral disturbance Qualified Code(s): F03.90 - Unspecified dementia without behavioral disturbance (3) Fever Code(s): R50.9 - FEVER, UNSPECIFIED Qualifiers: Fever type: due to other condition Qualified Code(s): R50.81 - Fever presenting with conditions classified elsewhere (4) Loose stools Code(s): R19.5 - OTHER FECAL ABNORMALITIES This patient is new to me today: No Emergency Visit: Yes ED Registration Date: 05/31/18 Care time: The patient presented to the Emergency Department on the above date and was hospitalized for further evaluation of their emergent condition. Critical Care patient: No - Discharge Referral Referred to [facility] Med [facility] No
[2018-06-02 23:07] VITALS: BP 118/65; PULSE 75; TEMP 99
--- NOTE | 2018-06-03 07:37 | PN ---
Teaching Attending Note Name of Resident: Gwendolyn Dior ATTENDING PHYSICIAN STATEMENT I saw and evaluated the patient. I reviewed the resident's note and discussed the case with the resident. I agree with the resident's findings and plan as documented. SUBJECTIVE: declined exam and interview ASSESSMENT AND PLAN: 73 y/o lady with h/o dementia, COPD, anxiety, bladder mesh, CVA, GERD, hysterectomy, and b/l cataract sx who presented form [facility] facility due to N/V. She was found evidence of diverticulitis on CT scan 1- Acute L sided diverticulitis. - switch to po abx per ID - regular diet - f/u with GI as out pt 2- L sided infiltrates on CT, No PNA clinically 3- Asymptomatic pyuria . urine cx done before abx is neg . No UTI 4- h/o dementia and anxiey : cont remeron , and xanax. DC today
== END 2018-06-02 18:15 | disposition home or self-care (01) | DRG 391 ==
LOC: JER 20:13 → J5S 05-31 00:26 → UNDOADMIN 05-31 03:00
PROVIDERS: ADMIT Internal Medicine; ATTEND Internal Medicine
DX: K57.32 Diverticulitis of large intestine without perforation or abscess without bleeding (principal); J18.9 Pneumonia, unspecified organism; N39.0 Urinary tract infection, site not specified; J98.11 Atelectasis; J44.9 Chronic obstructive pulmonary disease, unspecified; K21.9 Gastro-esophageal reflux disease without esophagitis; F41.9 Anxiety disorder, unspecified; Z86.73 Personal history of transient ischemic attack (TIA), and cerebral infarction without residual deficits; Z87.891 Personal history of nicotine dependence; G30.9 Alzheimer's disease, unspecified; F02.80 Dementia in other diseases classified elsewhere, unspecified severity, without behavioral disturbance, psychotic disturbance, mood disturbance, and anxiety; Z90.710 Acquired absence of both cervix and uterus; R19.5 Other fecal abnormalities; K44.9 Diaphragmatic hernia without obstruction or gangrene
CPT/HCPCS: 36415; 71045-TC-FY; 74177-TC; 80048; 80053; 81003; 81015; 82150; 83605; 83690; 83735; 83880; 84100; 84484; 85025; 85027; 85610; 87086; 93005; 93010; 97116-GP; 97161-GP; 99282-25; J1644; J7030

== ENCOUNTER 2019-05-15 07:49 | Emergency (ER) | payer OTHER, MEDICARE ==
[2019-05-15 08:16] VITALS: BMI 21.0
--- NOTE | 2019-05-15 08:55 | PDOC ---
History of Present Illness <Willard Pierre - Last Filed: 05/15/19 11:59> <Priscila Montaño - Last Filed: 05/24/19 23:41> - General Chief Complaint: Seizure Stated Complaint: SEIZURE,FALL Time Seen by Provider: 05/15/19 08:18 Past History <Willard Pierre - Last Filed: 05/15/19 11:59> - Past Medical History Anemia: No Asthma: Yes Cancer: No Cardiac Disorders: No CVA: No COPD: Yes CHF: No Dementia: Yes (FORGETFUL, MILD DEMENTIA) Diabetes: No GI Disorders: Yes (ACID REFLUX) Disorders: No HTN: No Hypercholesterolemia: No Liver Disease: No Psychiatric Problems: Yes (ANXIETY) Seizures: No Thyroid Disease: Yes - Surgical History Abdominal Surgery: No Appendectomy: No Cardiac Surgery: No Cholecystectomy: No Lung Surgery: No Neurologic Surgery: No Orthopedic Surgery: No - Immunization History Td Vaccination: Yes Immunization Up to Date: Yes - Psycho Social/Smoking Cessation Hx Smoking Status: No Smoking History: Never smoked Have you smoked in the past 12 months: No Number of Cigarettes Smoked Daily: 0 If you are a former smoker, when did you quit?: OVER 40 YREAS AGO Information on smoking cessation initiated: No Hx Alcohol Use: No Drug/Substance Use Hx: No Substance Use Type: None Hx Substance Use Treatment: No <Priscila Montaño - Last Filed: 05/24/19 23:41> - Past Medical History Allergies/Adverse Reactions: Allergies Allergy/AdvReac Type Severity Reaction Status Date / Time No Known Drug Allergies Allergy Verified 05/15/19 08:16 seasonal Allergy Uncoded 05/15/19 08:16 Home Medications: Ambulatory Orders Cholecalciferol (Vitamin D3) [Vitamin D3] 400 unit PO DAILY tablet 09/08/12 Magnesium Oxide [Magnesium] 500 mg PO 2 Caps daily capsule 09/08/12 Multivitamin [Daily Vitamin] 1 each PO DAILY tablet 09/08/12 Pyridoxine HCl [Vitamin B-6] 200 mg PO 2 Tabs Daily tablet 09/08/12 Pantoprazole Sodium [Protonix] 40 mg PO DAILY 08/13/14 Montelukast Na [Singulair -] 10 mg PO HS 09/25/14 Guaifenesin [Expectorant] 200 mg PO QID PRN #30 tablet 05/31/15 Aspirin Coated [Ecotrin -] 81 mg PO DAILY #30 tablet.ec 04/30/18 Alprazolam [Xanax] 0.25 mg PO BID PRN 05/31/18 Donepezil HCl [Aricept] 10 mg PO 05/31/18 Levothyroxine [Synthroid -] 25 mcg PO DAILY 05/31/18 Olanzapine [Zyprexa -] 2.5 mg PO HS 05/31/18 Levofloxacin [Levaquin] 250 mg PO DAILY #7 tablet 06/02/18 metroNIDAZOLE [Flagyl -] 500 mg PO TID #21 tablet 06/02/18 Levofloxacin [Levaquin] 250 mg PO DAILY #7 tablet 06/03/18 Cephalexin [Keflex *Suspension*] 5 ml PO BID 10 Days #1 bottle 05/18/19 *Physical Exam - Vital Signs Last Vital Signs Temp Pulse Resp BP Pulse Ox 99.5 F 88 18 136/79 97 05/15/19 09:22 05/15/19 11:56 05/15/19 11:56 05/15/19 11:56 05/15/19 07:55 <Willard Pierre - Last Filed: 05/15/19 11:59> - Vital Signs Last Vital Signs Temp Pulse Resp BP Pulse Ox 97.9 F 97 H 17 125/75 97 05/15/19 07:55 05/15/19 07:55 05/15/19 07:55 05/15/19 07:55 05/15/19 07:55 <Priscila Montaño - Last Filed: 05/24/19 23:41> ED Treatment Course - LABORATORY CBC & Chemistry Diagram: 05/15/19 09:07 05/15/19 09:07 - ADDITIONAL ORDERS Additional order review: Laboratory Results 05/15/19 05/15/19 05/15/19 09:07 09:07 09:07 PT with INR INR PTT (Actin FS) Sodium 137 Potassium 4.4 Chloride 106 Carbon Dioxide 25 Anion Gap 6 L BUN 22.1 H Creatinine 0.4 L Est GFR (CKD-EPI)AfAm 118.09 Est GFR (CKD-EPI)NonAf 101.89 Random Glucose 103 Lactic Acid 1.0 Calcium 9.1 Phosphorus 3.2 Magnesium 2.3 Total Bilirubin 0.4 AST 11 L ALT 12 L Alkaline Phosphatase 101 Creatine Kinase 55 Troponin I < 0.02 Total Protein 7.0 Albumin 3.2 L Lipase 54 L TSH 0.69 05/15/19 09:07 PT with INR 13.30 H INR 1.13 H PTT (Actin FS) 34.2 Sodium Potassium Chloride Carbon Dioxide Anion Gap BUN Creatinine Est GFR (CKD-EPI)AfAm Est GFR (CKD-EPI)NonAf Random Glucose Lactic Acid Calcium Phosphorus Magnesium Total Bilirubin AST ALT Alkaline Phosphatase Creatine Kinase Troponin I Total Protein Albumin Lipase TSH 05/15/19 09:07 RBC 4.84 MCV 81.4 MCHC 33.0 RDW 17.7 H MPV 9.5 Neutrophils % 82.7 D Lymphocytes % 9.0 D Monocytes % 7.6 Eosinophils % 0.4 Basophils % 0.3 - Medications Given in the ED: ED Medications Discontinued Medications Generic Name Dose Route Start Last Admin Trade Name Freq PRN Reason Stop Dose Admin Sodium Chloride 500 mls @ 500 mls/hr 05/15/19 10:14 05/15/19 10:27 Normal Saline - IV 05/15/19 11:13 500 mls/hr ASDIR STA Administration <Willard Pierre - Last Filed: 05/15/19 11:59> - LABORATORY CBC & Chemistry Diagram: 05/15/19 09:07 05/15/19 09:07 <Priscila Montaño - Last Filed: 05/24/19 23:41> Medical Decision Making - Medical Decision Making 05/15/19 12:13 HPI: 74yo F hx COPD, anxiety, alzheimers dementia, GERD, not on AC or aspirin, BIBA from home with daughter Kirt (cares for pt with DRESS DESIGNER assistance) for seizure and fall at 0625 this AM. History obtained from daughter. Pt was in [facility] yesterday, baseline nonverbal, incomprehensible words only, can move all extremities but nonambulatory and cannot sit up straight. Endorses cough xmonths with multiple workups showing chronic COPD. Progressive generalized weakness and fatigue x1wk. Today daughter found pt in bed at 0625 profusely diaphoretic soaking through sheets. Daughter moved pt to wheelchair and while changing sheets, pt jerked forward out of chair falling onto L side on carpet floor, hitting L posterior head on bureau, no LOC, but pt got stiff and had generalized convulsions for approximately 2 minutes, unknown incontinence (wears diaper normally, had not checked it), no tongue biting, no change in mental status since. Daughter states had similar episode 2 months ago, no prior seizures, no neurologist or workup for seizures. Pt does not show signs of pain, except can say ouch when press somewhere painful. Daughter denies any recent illness, trauma, sick contacts, fever, chills, vomiting, diarrhea, constipation, worsening confusion. Last tetanus unknown. ROS: unable to obtain 2/2 AMS PE: Gen: Sleepy but responsive to verbal, moans and can say "ouch", contracted arms HEENT: PERRL miosis, EOMI, MMM, NC, +2cm lac to L posterior scalp without foreign body or active bleeding. No conjunctival pallor. Sclera are non- icteric. Oropharynx is clear. CV: Regular rate and rhythm. No murmurs, rubs, or gallops. PULM: No resp distress. Difficulty listening to lungs 2/2 mouth breathing ABD: soft, NT/ND, no rebound tenderness or guarding, no CVA tenderness. BACK: No TTP of c/t/l-spine. No step-offs or deformities. MSK: No bony deformities. 2+ pulses in all extremities. NEURO: AAOx3. PERRL. No gross CN deficits. Strength and sensation grossly intact throughout. EXTREMITIES: No cyanosis. No clubbing. No edema. No calf tenderness. PSYCH: Normal mood and thought pattern. SKIN: Warm and dry. Normal capillary refill. No rashes. No jaundice. MDM: 74yo F hx COPD, anxiety, alzheimers dementia, GERD, not on AC or aspirin, BIBA from home with daughter iKrt (cares for pt with DRESS DESIGNER assistance) for L-sided pain and fatigue s/p seizure and fall at 0625 this AM. Hemodynamically stable, afebrile, sleepy but responsive to verbal, nonverbal at baseline. Ddx: seizure, stroke, ICH, metabolic derangement, anemia, infection, ACS/LA, arrhythmia, thyroid pathology -Keppra 1g -IVF -Tylenol IV for pain -EKG -Labs including blood cultures, cardiac profile, TSH, UA/UC -CTH/c-spine -XR L shoulder, chest, L hip and pelvis -Tetanus -Dispo: pending w/u CTH reviewed: acute left posterior parafalcine subdural hematoma 4 mm in thickness including some subtle hemorrhagic contusions. Spoke with instructional supervisor NSGY Dr Marie - recommended transfer [facility]. Transfer accepted by [facility] NSGY, ER transfer. <Priscila Montaño - Last Filed: 05/24/19 23:41> Discharge - Discharge Information Problems reviewed: Yes - Admission No - Transfer to Acute Care Facility Receiving Facility Name: [place] [address] Accepting Physician:: Dr. Nieto and Dr. Paz <Willard Pierre - Last Filed: 05/15/19 11:59> <Priscila Montaño - Last Filed: 05/24/19 23:41> - Discharge Information Clinical Impression/Diagnosis: Seizure, Subdural hematoma Head injury Qualifiers: Encounter type: initial encounter Qualified Code(s): S09.90XA - Unspecified injury of head, initial encounter Condition: Critical Disposition: TRANSFER ACUTE CARE/OTHER HOSP - Additional Discharge Information Prescriptions: Cephalexin [Keflex *Suspension*] 5 ml PO BID 10 Days #1 bottle - Follow up/Referral Referrals: Steven Velasco [Primary Care Provider] -
--- NOTE | 2019-05-15 08:55 | PDOC ---
Attending Attestation - Resident Resident Name: Priscila Montaño - ED Attending Attestation I have performed the following: I have examined & evaluated the patient, The case was reviewed & discussed with the resident, I agree w/resident's findings & plan, Exceptions are as noted - HPI HPI: 05/15/19 08:53 74y F hx of COPD, dementia, CVa, gerd presents with reports sp fall. Daughter states that she had a witnessed fall was noted to be seated and then had a jerking movements that made her fall out of the chair she struck her head on a piece of furniture and then had several moments of rhythmic jerking while lying on the ground. History is provided by the daughter as the patient has advanced dementia. Per daughter's report the patient has been sleeping more than usual at approximately 18 hours a day has been eating and drinking less, has been having very strong smelling urine. - Physicial Exam PE: 05/15/19 10:12 GENERAL: The patient is awake, HEAD: Normocephalic, atraumatic. EYES: extraocular movements intact, sclera anicteric, conjunctiva clear. ENT: Normal voice, dry mucous membranes. NECK: Normal range of motion, supple LUNGS: Breath sounds equal, clear to auscultation bilaterally. No wheezes, no rhonchi, no rales. HEART: Regular rate and rhythm, normal S1 and S2 without murmur, rub or gallop. ABDOMEN: Soft, nontender, No guarding, no rebound. No CVA tenderness EXTREMITIES: normal passive ROM of extremities (stiff extremities but no significant discomfort with passive ROM) NEUROLOGICAL: No facial assymetry PSYCH: Normal mood, normal affect. SKIN: Warm, Dry, normal turgor, - Critical Care Time Total Critical Care Time: 45 Critical Care Statement: The care of this patient involved high complexity decision making to prevent further life threatening deterioration of the patient 's condition and/or to evaluate & treat vital organ system(s) failure or risk of failure. - Medical Decision Making 05/15/19 10:13 ?sezure vs ocult infectio nvs metabolic derangment will obtain xrays of L side as pt had discmfort on exam by resident of left side head ct/ct spine to r/o injury labs, ua to screen for infection/metabolic derangement fluids for hydation 05/15/19 11:[address] head noted for acute left posterior parafalcine subdural hematoma measuring 4 mm in thickness including some subtle hemorrhagic contusions. The case was discussed with Dr. Marie and recommended transfer. Patient is currently at baseline mental status, blood pressure is normal. Patient is on a baby aspirin 81 mg will defer any reversal at this time. The case was discussed with neurosurgery at [facility], and was accepted by a fellow under Dr. Nieto's service. Recommend dosing the patient with Keppra 1 g. Also discussed with emergency physician Jackson -accepted to the ED for further management. Heart Score/ECG Review - ECG Impressions Comment:: 05/15/19 12:00 Twelve-lead EKG was performed and reviewed by me. There is normal sinus rhythm with a normal rate. Rate of [address] wave changes suggestive of acute ischemia
[2019-05-15 09:23] VITALS: TEMP 99.5
[2019-05-15 09:44] LABS: BASO % 0.3 % (0-2.0); EOS % 0.4 % (0-4.5); HEMATOCRIT 39.4 % (32.4-45.2); MCH 26.8 pg (25.7-33.7); MEAN CELL VOLUME 81.4 fl (80-96); MEAN PLT VOLUME 9.5 fl (7.5-11.1); MONO % 7.6 % (3.8-10.2); NEUT % 82.7 % (42.8-82.8); PLATELET COUNT 512 K/MM3 (134-434); RBC 4.84 M/mm3 (3.60-5.2); RDW 17.7 % (11.6-15.6); WHITE BLOOD COUNT 13.9 K/mm3 (4.0-10.0)
[2019-05-15 10:02] LABS: ALBUMIN 3.2 g/dl (3.4-5.0); BILIRUBIN,TOTAL 0.4 mg/dL (0.2-1); BLOOD UREA NITROGEN 22.1 mg/dL (7-18); CALCIUM 9.1 mg/dL (8.5-10.1); CREATININE 0.4 mg/dL (0.55-1.3); POTASSIUM 4.4 mmol/L (3.5-5.1)
[2019-05-15 10:04] LABS: INR 1.13 (0.83-1.09); PROTHROMBIN TIME (PATIENT) 13.3 SEC (9.7-13.0)
[2019-05-15 10:06] LABS: ACTIVATED PTT 34.2 SECONDS (25.2-36.5)
[2019-05-15 10:11] LABS: LIPASE 54 U/L (73-393); MAGNESIUM 2.3 mg/dL (1.8-2.4); PHOSPHOROUS 3.2 mg/dL (2.5-4.9)
[2019-05-15] MEDS ORDERED: SODIUM CHLORIDE 500 ML IV STA (10:14)
[2019-05-15] MEDS ORDERED: ACETAMINOPHEN 1000 MG/100 ML VIAL (NON FORMULARY) IVPB ONE (11:44)
[2019-05-15] MEDS ORDERED: levETIRAcetam 500 MG/5 ML INJECTION VIAL IVPB ONE ×2 (11:54→12:03)
[2019-05-15 11:58] VITALS: BP 136/79; PULSE 88
[2019-05-15] MEDS ORDERED: ACETAMINOPHEN INJECTION 100 ML IVPB ONE (12:04)
[2019-05-15 12:24] LABS: EPI CELLS 19.5 /HPF (0-5/HPF); HYALINE CASTS 91 /lpf (0-8); PH,URINE 5.5 (5.0-8.0); URINE APPEARANCE TURBID; URINE BILIRUBIN NEGATIVE (NEGATIVE); URINE COLOR DK YELLOW; URINE GLUCOSE (UA) NEGATIVE (NEGATIVE); URINE KETONE TRACE (NEGATIVE); URINE LEUK ESTERASE 1+ (NEGATIVE); URINE NITRITE POSITIVE (NEGATIVE); URINE PROTEIN 2+ (NEGATIVE); URINE WBC 207 /hpf (0-5)
[2019-05-15] MEDS ORDERED: DIPHTH,PERTUSS(ACELL),TET 0.5 ML DISP.SYRIN IM ONE ×2 (12:29→12:34)
[2019-05-15 14:18] LABS: URINE RBC 62.4 /hpf (0-4)
[2019-05-15 14:19] LABS: URINE BACTERIA 2528 /hpf (NEGATIVE); URINE CRYSTALS NEGATIVE /hpf; YEAST NEGATIVE (NEGATIVE)
--- NOTE | 2019-05-16 11:25 | EKG ---
Test Reason : Blood Pressure : / mmHG Vent. Rate : 086 BPM Atrial Rate : 086 BPM P-R Int : 152 ms QRS Dur : 084 ms QT Int : 348 ms P-R-T Axes : 050 -05 055 degrees QTc Int : 416 ms NORMAL SINUS RHYTHM SEPTAL INFARCT , AGE UNDETERMINED ABNORMAL ECG Confirmed by MD CHLOE, HUONG ([id number]) on 05/16/2019 11:25:13 AM Referred By: Confirmed By:HUONG CORONA MD
== END 2019-05-15 13:00 | disposition short-term general hospital (02) ==
LOC: JER 07:49
PROC: 3E0234Z Introduction of Serum, Toxoid and Vaccine into Muscle, Percutaneous Approach (ICD-10-PCS; principal; 2019-05-15)
PROC: 3E0337Z Introduction of Electrolytic and Water Balance Substance into Peripheral Vein, Percutaneous Approach (ICD-10-PCS; 2019-05-15)
PROC: 3E033NZ Introduction of Analgesics, Hypnotics, Sedatives into Peripheral Vein, Percutaneous Approach (ICD-10-PCS; 2019-05-15)
PROC: 3E033GC Introduction of Other Therapeutic Substance into Peripheral Vein, Percutaneous Approach (ICD-10-PCS; 2019-05-15)
DX: S06.5X0A Traumatic subdural hemorrhage without loss of consciousness, initial encounter (principal); W05.0XXA Fall from non-moving wheelchair, initial encounter; W01.190A Fall on same level from slipping, tripping and stumbling with subsequent striking against furniture, initial encounter; Y93.89 Activity, other specified; Y92.032 Bedroom in apartment as the place of occurrence of the external cause; Y99.8 Other external cause status; J44.9 Chronic obstructive pulmonary disease, unspecified; J45.998 Other asthma; G30.8 Other Alzheimer's disease; F02.80 Dementia in other diseases classified elsewhere, unspecified severity, without behavioral disturbance, psychotic disturbance, mood disturbance, and anxiety; K21.9 Gastro-esophageal reflux disease without esophagitis; F41.9 Anxiety disorder, unspecified; Z86.73 Personal history of transient ischemic attack (TIA), and cerebral infarction without residual deficits
CPT/HCPCS: 36415; 70450-TC; 71045-TC-FY; 72125-TC; 73030-TC-LT-FY; 73523-TC-FY; 80053; 81003; 82550; 83605; 83690; 83735; 84100; 84443; 84484; 85025; 85610; 85730; 86850; 86900; 86901; 87086; 87186; 90471; 90715; 93005; 93010; 96361; 96374; 96375; 99285-25; J0131

== ENCOUNTER 2020-02-10 18:42 | Inpatient (IN) | payer OTHER, MEDICARE ==
[2020-02-10 18:58] VITALS: BMI 20.1
[2020-02-10 19:59] LABS: BASO % 0.6 % (0-2.0); EOS % 0.1 % (0-4.5); HEMATOCRIT 24.7 % (32.4-45.2); HEMOGLOBIN 7.9 GM/dL (10.7-15.3); MCH 24.9 pg (25.7-33.7); MCHC 31.9 g/dl (32.0-36.0); MEAN CELL VOLUME 78.1 fl (80-96); MEAN PLT VOLUME 9.1 fl (7.5-11.1); MONO % 7.3 % (3.8-10.2); PLATELET COUNT 682 K/MM3 (134-434); RBC 3.17 M/mm3 (3.60-5.2); RDW 17.5 % (11.6-15.6); WHITE BLOOD COUNT 14.3 K/mm3 (4.0-10.0)
[2020-02-10 20:07] LABS: POTASSIUM 4.7 mmol/L (3.5-5.1)
[2020-02-10 20:09] LABS: CALCIUM 9.3 mg/dL (8.5-10.1)
[2020-02-10 20:10] LABS: ALBUMIN 3.1 g/dl (3.4-5.0); BLOOD UREA NITROGEN 19.3 mg/dL (7-18)
[2020-02-10 20:13] LABS: CREATININE 0.4 mg/dL (0.55-1.3)
[2020-02-10 20:14] LABS: BILIRUBIN,TOTAL 0.3 mg/dL (0.2-1); TOT PROT 6.7 g/dl (6.4-8.2)
[2020-02-10 20:18] LABS: N-TERMINAL BNP 168.2 pg/ml (5-450)
[2020-02-10 20:28] LABS: INR 1.06 (0.83-1.09)
[2020-02-10] MEDS ORDERED: PANTOPRAZOLE SODIUM 40 MG VIAL IVPUSH ONE (21:02)
[2020-02-10] MEDS ORDERED: SODIUM CHLORIDE 0.9% 500 ML INFUS.BAG IV ONE (21:02)
[2020-02-10] MEDS ORDERED: PANTOPRAZOLE SODIUM 40 MG VIAL ONE (21:21)
[2020-02-10] MEDS: PANTOPRAZOLE SODIUM 80 MG in SODIUM CHLORIDE 100 ML IVPB SCH (21:46)
[2020-02-11] MEDS: SODIUM CHLORIDE 1,000 ML IV SCH (00:25)
[2020-02-11] MEDS ORDERED: PANTOPRAZOLE SODIUM 40 MG VIAL ONE ×2 (06:33→17:32)
[2020-02-11 06:42] LABS: BASO % 0.9 % (0-2.0); EOS % 0.2 % (0-4.5); HEMATOCRIT 21.9 % (32.4-45.2); LYMPH % 18.8 % (8-40); MCH 24.8 pg (25.7-33.7); MCHC 31.6 g/dl (32.0-36.0); MEAN CELL VOLUME 78.5 fl (80-96); MEAN PLT VOLUME 8.5 fl (7.5-11.1); MONO % 9.5 % (3.8-10.2); NEUT % 70.6 % (42.8-82.8); PLATELET COUNT 601 K/MM3 (134-434); RDW 16.9 % (11.6-15.6); WHITE BLOOD COUNT 9.7 K/mm3 (4.0-10.0)
[2020-02-11 06:47] LABS: HEMOGLOBIN 6.9 GM/dL (10.7-15.3)
[2020-02-11 06:59] LABS: POTASSIUM 4.2 mmol/L (3.5-5.1)
[2020-02-11 07:04] LABS: CALCIUM 8.2 mg/dL (8.5-10.1)
[2020-02-11 07:05] LABS: ALBUMIN 2.8 g/dl (3.4-5.0); BLOOD UREA NITROGEN 17.6 mg/dL (7-18); CREATININE 0.3 mg/dL (0.55-1.3); MAGNESIUM 2.2 mg/dL (1.8-2.4)
[2020-02-11 07:07] LABS: BILIRUBIN,TOTAL 0.4 mg/dL (0.2-1); TOT PROT 5.9 g/dl (6.4-8.2)
[2020-02-11 07:08] LABS: PHOSPHOROUS 2.4 mg/dL (2.5-4.9)
[2020-02-11] MEDS: PANTOPRAZOLE SODIUM 80 MG in SODIUM CHLORIDE 100 ML IVPB SCH ×2 (07:26→18:02)
[2020-02-12] MEDS: SODIUM CHLORIDE 1,000 ML IV SCH ×2 (03:48→04:05)
[2020-02-12] MEDS: PANTOPRAZOLE SODIUM 80 MG in SODIUM CHLORIDE 100 ML IVPB SCH ×2 (03:49→14:29)
[2020-02-12] MEDS ORDERED: SODIUM CHLORIDE 1,000 ML IV SCH (13:32)
[2020-02-13] MEDS: PANTOPRAZOLE SODIUM 80 MG in SODIUM CHLORIDE 100 ML IVPB SCH ×3 (01:48→09:26)
[2020-02-13 11:09] VITALS: BP 122/70; PULSE 90; TEMP 97.4
== END 2020-02-13 12:42 | disposition hospice, home (50) | DRG 377 ==
LOC: JER 18:42 → JERBED 21:11 → J6WEST-2 02-11 17:40 → J6S 02-12 21:31
PROVIDERS: ADMIT Hospitalist; ATTEND Internal Medicine
DX: K92.2 Gastrointestinal hemorrhage, unspecified (principal); R53.2 Functional quadriplegia; D62 Acute posthemorrhagic anemia; R64 Cachexia; G30.9 Alzheimer's disease, unspecified; F02.80 Dementia in other diseases classified elsewhere, unspecified severity, without behavioral disturbance, psychotic disturbance, mood disturbance, and anxiety; E03.9 Hypothyroidism, unspecified; K21.9 Gastro-esophageal reflux disease without esophagitis; Z68.20 Body mass index [BMI] 20.0-20.9, adult; D72.829 Elevated white blood cell count, unspecified; R00.0 Tachycardia, unspecified
CPT/HCPCS: 36415; 71045-TC-FY; 80053; 82272; 82550; 82553; 82728; 83540; 83550; 83605; 83735; 83880; 84100; 84484; 85025; 85610; 85730; 87040; 93005; 93010; 99285-25; C9803; U0003